=== PATIENT | female | born 1950 | race Caucasian/White ===

== ENCOUNTER 2017-05-11 06:59 | Emergency (ER) | payer OTHER ==
[2017-05-11] MEDS ORDERED: NORCO 7.5/325 MG TAB PO ONE (07:12)
[2017-05-11 07:14] VITALS: BP 126/70; BMI 52.1
[2017-05-11] MEDS ORDERED: NORCO 7.5/325 MG TAB ONE (07:14)
[2017-05-11] MEDS ORDERED: TORADOL 60 MG VIAL IM ONE (07:22)
[2017-05-11] MEDS ORDERED: TORADOL 60 MG VIAL ONE (07:27)
--- NOTE | 2017-05-11 07:30 | DR.GENAD ---
HPI - PCP Primary Care Physician: KAREN LAROSE - Complaint/Symptoms Chief Complaint:: FALL AT APPROX 530AM. C/O SEVERE PAIN TO RIGHT SHOULDER AND RIGHT KNEE IS SWELLING - Nurses notes reviewed Nurses Notes Review: Yes - Source History Provided: Patient - Mode of Arrival Mode of Arrival: Wheelchair - Timing Onset of Chief Complaint: 05/11/17 <BUDDY GRIGSBY - Last Filed: 05/11/17 07:12> PMH - PMH Past Medical History: Yes Past Medical History: Arthritis, Hypertension, Ventricular Tachycardia Past Surgical History: Yes Surgical History: Hysterectomy, Ortho Surgery, Tonsillectomy - Family History History of Family Medical Conditions: Yes Family Medical History: Diabetes Mellitus, Cancer, Hypertension - Social History Does patient currently use any type of tobacco product: No Have you used tobacco products in the last 12 months: No Type of Tobacco Use: None Does any household member use tobacco: No Alcohol Use: None Do you use any recreational Drugs:: No Lives With: Alone Lives Where: Home - infectious screening In the last 2 months have you had wt loss of >10#?: NO Have you had fever, night sweats or hemotysis?: No Have you traveled outside the country in the last 6 months?: No Isolation: Standard <BUDDY GRIGSBY - Last Filed: 05/11/17 07:12> - Vital Signs Vitals: Pulse Rate 87 Respiratory Rate 22 Blood Pressure [Right Arm] 106/55 Blood Pressure 126/70 O2 Sat by Pulse Oximetry 95 ROR - XRAY XRAY Interpreted by: Radiologist (Successful shoulder reduction. Severe acromial humeral joint space loss consistent with chronic rotator cuff injury. Severe acromial clavicular joint arthritis.) <CARLOS SNOW - Last Filed: 05/11/17 10:43> <BUDDY GRIGSBY - Last Filed: 05/11/17 07:12> <CARLOS SNOW - Last Filed: 05/11/17 10:43> - Diagnosis Discharge Problem: Dislocation of right shoulder joint Qualifiers: Encounter type: initial encounter Qualified Code(s): S43.004A - Unspecified dislocation of right shoulder joint, initial encounter - Discharge Plan Condition: Stable - Follow ups/Referrals Follow ups/Referrals: SUSI LAROSE [Primary Care Provider] - 3 days - Instructions
[2017-05-11] MEDS ORDERED: ZOFRAN INJ 4 MG VIAL IM ONE (08:14)
[2017-05-11] MEDS ORDERED: DEMEROL INJ IM ONE (08:14)
--- NOTE | 2017-05-11 08:15 | RAD ---
HISTORY: Injury, fall, right shoulder pain Study: Right shoulder AP, lateral Comparison: None Findings: There is complete anterior glenohumeral dislocation present. The clavicle, AC joint, scapula, and rig ht upper ribs are intact. IMPRESSION: Anterior glenohumeral dislocation Reported By:
--- NOTE | 2017-05-11 08:18 | RAD ---
HISTORY: Injury, fall, right knee swelling Study: Right knee AP and lateral Comparison: February 01, 2016 Findings: The patient is status post total knee arthroplasty. Position and alignment is anatomic. There is a fr agment of bone visualized adjacent to the tibial prosthesis lateral side likely representing a fractu re. There is no evidence for loosening. No joint effusion is present. IMPRESSION: Status post TKA in good position. Fragment of bone adjacent to the lateral aspect of the tibial prosthesis on the tibial plateau likel y a periprosthetic fracture. Reported By:
[2017-05-11] MEDS ORDERED: ZOFRAN INJ 4 MG VIAL ONE (08:21)
[2017-05-11] MEDS ORDERED: DEMEROL INJ ONE (08:21)
[2017-05-11] MEDS ORDERED: DIPRIVAN VIAL 20 ML ONE (08:29)
[2017-05-11] MEDS ORDERED: PROTONIX INJ 40 MG VIAL ONE (08:29)
[2017-05-11] MEDS ORDERED: NS 250 ML IV 250 ML IV ONE (10:05)
--- NOTE | 2017-05-11 10:35 | RAD ---
HISTORY: Post reduction Study: 1 views of the right shoulder. Comparison: 05/11/2017 Findings: No acute fractures or dislocations. The glenohumeral articulation is normal in its appearance. No gr oss soft tissue abnormalities. IMPRESSION: 1. Successful shoulder reduction. Severe acromial humeral joint space loss consistent with chronic r otator cuff injury. Severe acromial clavicular joint arthritis. Reported By:
== END 2017-05-11 12:39 | disposition home or self-care (01) ==
LOC: ER 06:59
PROC: 0RSJXZZ Reposition Right Shoulder Joint, External Approach (ICD-10-PCS; principal; 2017-05-11)
DX: S43.004A Unspecified dislocation of right shoulder joint, initial encounter (principal); Y33.XXXA Other specified events, undetermined intent, initial encounter; Y92.9 Unspecified place or not applicable
CPT/HCPCS: 23650; 73030; 73560; 96365; 96372; 96374; 99283; 99284; A4222; C9113; J1885; J2175; J2405; J3490

== ENCOUNTER → 2017-07-17 | Outpatient (CLI) | payer OTHER ==
--- NOTE | 2017-07-17 14:46 | MRI ---
HISTORY: Shoulder pain. Noncontrast MRI exam of the right shoulder. Technique: Multiplanar and multisequence MR examination of the shoulder is performed at 1.5 Dorys wit hout the use of IV contrast. Findings: Rotator cuff: There is an extensive, full-thickness, tear of the rotator cuff which extends from th e subscapularis of the rotator cuff to the superior aspect of the teres minor. There is marked media l translocation of the biceps tendon observed. Diffuse and marked rotator cuff atrophy is also observ ed. There is diffuse fluid seen in the subacromial and subdeltoid bursa. A moderate shoulder joint ef fusion is seen. Intra-articular biceps: No visible biceps tendon, compatible with a high-grade tear. Glenoid labrum: Diffuse fraying and degenerative maceration of the entire glenoid labrum on a degen erative basis without acute injury seen. Acromioclavicular joint: Severe AC joint osteoarthritis without AC joint injury, separation, or acu te fracture seen. Moderate acromial flattening is also seen. Glenohumeral joint: No loose bodies seen. Moderate sized shoulder joint effusion. No focal synovial erosive process is seen. However, there is severe osteoarthritis of the shoulder joint with remodeli ng of the humeral head and marginal osteophytes seen. Advanced shoulder joint chondromalacia is seen. Bone marrow: No altered T2 bone marrow signal changes are seen to suggest an acute fracture, bony c ontusion, or aggressive bone marrow lesion. No Hill Sachs deformity or bony [place] lesion is observe d, otherwise. Other: No concerning or infiltrative soft tissue mass lesion seen. IMPRESSION: 1. Full-thickness (massive and chronic appearing) rotator cuff tear, extending from the subscapularis to the teres minor with diffuse and severe rotator cuff atrophy observed. 2. High-grade tear of the intra-articular biceps tendon seen. 3. Diffuse maceration and fraying of the entire glenoid labrum; degenerative in nature. Severe AC and shoulder joint osteoarthritis with remodeling of the humeral head. Advanced shoulder joint chondroma lacia. 4. Moderate sized joint effusion with diffuse fluid in the subacromial bursa. Reported By:
== END | disposition home or self-care (01) | DRG 563 ==
LOC: RAD 12:40
PROVIDERS: ATTEND Orthopaedic Surgery
DX: S43.084A Other dislocation of right shoulder joint, initial encounter (principal); X58.XXXA Exposure to other specified factors, initial encounter; M75.101 Unspecified rotator cuff tear or rupture of right shoulder, not specified as traumatic; S46.211A Strain of muscle, fascia and tendon of other parts of biceps, right arm, initial encounter; M19.011 Primary osteoarthritis, right shoulder; M25.411 Effusion, right shoulder
CPT/HCPCS: 73221

== ENCOUNTER → 2017-09-19 | Outpatient (CLI) | payer OTHER ==
--- NOTE | 2017-09-20 10:59 | MG ---
HISTORY: SCREENING Comparison: 08/14/2016 FINDINGS: Bilateral CC and MLO projections of the right and left breast were obtained. Predominately fatty rep laced fibroglandular tissue is seen to be present. Stable nodular densities within the lateral aspect of the right and left breast are noted likely reflecting intraparenchymal and axillary lymph nodes. Otherwise, no significant architectural distortion, mass or clustered microcalcifications can be obse rved to suggest malignancy. No skin thickening or nipple retraction is appreciated. No pathologica l lymphadenopathy can be identified. IMPRESSION: NO RADIOGRAPHIC EVIDENCE OF MALIGNANCY. ACR CATEGORY: 2 - benign findings. FOLLOW-UP EXAM 1 YEAR. Diagnostic CAD was utilized and reviewed. * 0 (ZERO) - ASSESSMENT INCOMPLETE; ADDITIONAL IMAGING IS NEEDED. * 1/1 (ONE) - NEGATIVE. * 2/II (TWO) - BENIGN FINDINGS. * 3/III (THREE) - PROBABLY BENIGN FINDING; SHORT INTERVAL FOLLOW-UP SUGGESTED. * 4/IV (FOUR) - SUSPICIOUS ABNORMALITY; BIOPSY SHOULD BE CONSIDERED. * 5/V - HIGHLY SUSPICIOUS OF MALIGNANCY; BIOPSY SHOULD BE PERFORMED. A NEGATIVE X-RAY REPORT SHOULD NOT DELAY BIOPSY IF A DOMINANT OR CLINICALLY SUSPICIOUS MASS IS PRESENT; 4 TO 8 PERCENT OF CANCERS ARE NOT IDENTIFIED BY X-RAY. A NEGA TIVE REPORT MAY REINFORCE THE CLINICAL IMPRESSION. ADENOSIS AND DENSE BREASTS MAY OBSCURE AN UNDERLY ING NEOPLASM. Reported By:
== END ==
LOC: RAD 14:22
PROVIDERS: ATTEND Nurse Practitioner Family
DX: Z12.31 Encounter for screening mammogram for malignant neoplasm of breast (principal)
CPT/HCPCS: 77067

== ENCOUNTER 2018-12-30 08:22 | Inpatient (IN) ==
[2018-12-29 14:19] LABS: HEMATOCRIT 30.2 % (36.0-47.0); HEMOGLOBIN 9.1 g/dL (12.0-16.0)
[2018-12-30] MEDS ORDERED: ANCEF 1 GRAM IV PREMIX* 1 G/50 ML BAG IV ONE (09:44)
[2018-12-30] MEDS ORDERED: LR 1000 ML IV 1,000 ML ONE (09:44)
[2018-12-30 10:47] VITALS: BMI 42.5
[2018-12-30] MEDS ORDERED: FENTANYL INJ 100 mcg ONE (11:31)
[2018-12-30] MEDS ORDERED: ZEMURON ONE ×2 (11:32→12:46)
[2018-12-30] MEDS ORDERED: DECADRON INJ ONE ×2 (11:32→12:46)
[2018-12-30] MEDS ORDERED: XYLOCAINE 2% and EPINEPHRINE 1:100,000 ONE (11:44)
[2018-12-30] MEDS ORDERED: XYLOCAINE 1 % (PLAIN) ONE (11:44)
[2018-12-30] MEDS ORDERED: NS 1000 ML 1,000 ML ONE ×2 (12:03→13:58)
[2018-12-30] MEDS ORDERED: BACITRACIN VIAL ONE (12:16)
[2018-12-30] MEDS ORDERED: FLAGYL IV PREMIX 500 MG BAG 500 MG/100 ML BAG IV ONE (12:16)
[2018-12-30] MEDS ORDERED: NEOSTIGMINE INJ ONE (12:46)
[2018-12-30] MEDS ORDERED: ULTANE GAS ONE (12:46)
[2018-12-30] MEDS ORDERED: ROBINUL ONE (12:46)
[2018-12-30] MEDS ORDERED: VERSED ONE (12:46)
[2018-12-30] MEDS ORDERED: QUELICIN (OR ANECTINE) ONE (12:46)
[2018-12-30] MEDS ORDERED: TORADOL 30 MG VIAL ONE (12:46)
[2018-12-30] MEDS ORDERED: DIPRIVAN VIAL ONE (12:46)
[2018-12-30] MEDS ORDERED: ZOFRAN INJ 4 MG VIAL ONE (12:46)
[2018-12-30] MEDS ORDERED: NS IRRIGATION 1000 ML 1,000 ML with BACITRACIN VIAL 50,000 UNIT IR ONE ×2 (13:00)
[2018-12-30 13:51] LABS: BILIRUBIN,URINE NEGATIVE (NEGATIVE); BLOOD/HEMOGLOBIN,URINE 1+ (NEGATIVE); GLUCOSE, URINE NEGATIVE (NEGATIVE); KETONES,URINE NEGATIVE (NEGATIVE); LEUKOCYTE ESTERASE ,URINE NEGATIVE (NEGATIVE); NITRITES,URINE NEGATIVE (NEGATIVE); PH,URINE 6.5 (5.0 - 8.0); PROTEIN,URINE 1+ (NEGATIVE); UROBILINOGEN,URINE NORMAL (NORMAL)
[2018-12-30 13:55] LABS: AMORPHOUS SEDIMENT,UR TRACE /HPF (NEGATIVE); APPEARANCE,URINE CLEAR (CLEAR); BACTERIA,URINE TRACE /HPF (NEGATIVE); COLOR,URINE YELLOW (YELLOW); MUCUS,URINE MANY /HPF (NEGATIVE); SQUAMOUS EPITHELIAL CELL,UR RARE /HPF (NEGATIVE)
[2018-12-30] MEDS ORDERED: PHENERGAN INJ 25 MG IM PRN (14:56)
[2018-12-30] MEDS ORDERED: REGLAN INJ 10 MG VIAL IVP PRN (14:56)
[2018-12-30] MEDS ORDERED: DILAUDID INJ IVP PRN (14:56)
[2018-12-30] MEDS ORDERED: BENADRYL INJ 50 MG VIAL IVP PRN (14:56)
[2018-12-30] MEDS ORDERED: ZOFRAN INJ 4 MG VIAL IVP PRN (14:56)
[2018-12-30 17:02] LABS: HEMATOCRIT 32.3 % (36.0-47.0); HEMOGLOBIN 9.8 g/dL (12.0-16.0)
[2018-12-30] MEDS: D5 1/2 NS 1000 ML 1,000 ML IV SCH (17:50)
[2018-12-30] MEDS: ANCEF VIAL 1 GRAM IVP SCH (21:42)
[2018-12-30] MEDS: FLAGYL IV PREMIX 500 MG BAG 500 MG/100 ML BAG IV SCH (21:42)
[2018-12-30] MEDS: DILAUDID INJ IVP PRN (21:42)
[2018-12-31] MEDS: D5 1/2 NS 1000 ML 1,000 ML IV SCH ×5 (00:42→23:47)
[2018-12-31] MEDS: FLAGYL IV PREMIX 500 MG BAG 500 MG/100 ML BAG IV SCH ×2 (03:14→08:33)
[2018-12-31] MEDS: DILAUDID INJ IVP PRN ×5 (03:15→22:32)
[2018-12-31] MEDS: ANCEF VIAL 1 GRAM IVP SCH (05:35)
[2018-12-31 06:15] LABS: BASOPHILS % (AUTO) 0.1 % (0.2-1.0); HEMATOCRIT 27.7 % (36.0-47.0); HEMOGLOBIN 8.6 g/dL (12.0-16.0); LYMPHOCYTES # (AUTO) 0.8 X10^3/uL (1.3-2.9); LYMPHOCYTES % (AUTO) 7.2 % (21.0-51.0); MEAN CORPUSCULAR HEMOGLOBIN 24.6 pg (27.0-34.0); MEAN CORPUSCULAR HGB CONC 31.3 g/dL (33.0-35.0); MEAN CORPUSCULAR VOLUME 78.7 fL (80.0-100.0); MEAN PLATELET VOLUME 7.8 fL (7.4-11.0); MONOCYTES # (AUTO) 0.9 x10^3/uL (0.3-0.8); MONOCYTES % (AUTO) 7.4 % (0.0-13.0); NEUTROPHILS % (AUTO) 85.3 % (42.0-75.0); PLATELET COUNT 334 X10^3/uL (150.0-450.0); RED BLOOD COUNT 3.52 X10^6/uL (3.5-5.4); RED CELL DISTRIBUTION WIDTH 19.3 % (11.6-16.5); WHITE BLOOD COUNT 11.7 X10^3/uL (3.6-10.0)
[2018-12-31 06:41] LABS: ALANINE AMINOTRANSFERASE 13 Units/L (12-78); ALBUMIN 1.6 g/dL (3.4-5.0); ALKALINE PHOSPHATASE 71 Units/L (46-116); ASPARTATE AMINO TRANSFERASE 16 Units/L (15-37); BLOOD UREA NITROGEN 11 mg/dL (7-18); CALCIUM 7.9 mg/dL (8.5-10.1); CARBON DIOXIDE 24.4 mmol/L (21-32); CHLORIDE 108 mmol/L (98-107); COR CA(FOR HYPOALB) 9.8 mg/dL (8.5-10.1); COR NA(FOR HYPERGLY) 143 mmol/L (136-145); CREATININE 0.69 mg/dL (0.55-1.02); SODIUM 140 mmol/L (136-145); TOTAL PROTEIN 4.1 g/dL (6.4-8.2); eGFR NON BLACK RACES > 60 (>60)
[2018-12-31 06:47] LABS: HYPOCHROMASIA SLIGHT; PLATELET MORPHOLOGY COMMENT NORMAL (NORMAL)
[2018-12-31] MEDS: LOVENOX INJ 40 MG SYR SC SCH (08:33)
[2018-12-31] MEDS: PROTONIX INJ 40 MG VIAL IVP SCH (08:33)
--- NOTE | 2018-12-31 08:47 | DR.PROGNOT ---
Hospital Progress Notes - Progress Note for Day of: Progress Note Date: 12/31/18 - Chief Complaint Chief Complaint: Posrt Op rt colectomy , repair incisional hernia day 1 .. doing fairly well , only moderate incisional pain . mild drainage in KERRY .and NGT . - Past Medical Family Social History Past Med/Fam/Surg Hx: No changes since H&P Allergies: Allergies Sulfa (Sulfonamide Antibiotics) [SULFA] Adverse Reaction (Verified 12/30/18 14:16) - Review Of Systems ROS: No change since H&P - Vital Signs Vital Signs: Temperature 97.7 F Pulse Rate 60 Respiratory Rate 12 Blood Pressure [Right Arm] 126/58 Blood Pressure 110/54 O2 Sat by Pulse Oximetry 97 - Physical Exam Oriented: Normal Eyes: Normal Respiratory: Normal GI: Tenderness: Diffuse (soft abdomen , flat with diffuse tenderness , BS hypo active .) Skin: Normal Psychiatric: Normal Mood Description: Calm Speech Pattern: Clear, Appropriate - Laboratory and Diagnostics Result Diagrams: 12/31/18 05:38 12/31/18 05:30 Labs: Laboratory WBC 11.7 X10^3/uL (3.6-10.0) H 12/31/18 05:38 RBC 3.52 X10^6/uL (3.5-5.4) 12/31/18 05:38 Hgb 8.6 g/dL (12.0-16.0) L 12/31/18 05:38 Hct 27.7 % (36.0-47.0) L 12/31/18 05:38 MCV 78.7 fL (80.0-100.0) L 12/31/18 05:38 MCH 24.6 pg (27.0-34.0) L 12/31/18 05:38 MCHC 31.3 g/dL (33.0-35.0) L 12/31/18 05:38 RDW 19.3 % (11.6-16.5) H 12/31/18 05:38 Plt Count 334 X10^3/uL (150.0-450.0) 12/31/18 05:38 Plt Count Comment Adequate (ADEQUATE) 12/31/18 05:38 MPV 7.8 fL (7.4-11.0) 12/31/18 05:38 Neut % (Auto) 85.3 % (42.0-75.0) H 12/31/18 05:38 Lymph % (Auto) 7.2 % (21.0-51.0) L 12/31/18 05:38 [place] % (Auto) 7.4 % (0.0-13.0) 12/31/18 05:38 Eos % (Auto) 0.0 % (0.9-2.9) L 12/31/18 05:38 Baso % (Auto) 0.1 % (0.2-1.0) L 12/31/18 05:38 Neut # (Auto) 10.0 x10^3/uL (2.2-4.8) H 12/31/18 05:38 Lymph # (Auto) 0.8 X10^3/uL (1.3-2.9) L 12/31/18 05:38 [place] # (Auto) 0.9 x10^3/uL (0.3-0.8) H 12/31/18 05:38 Eos # (Auto) 0.0 x10^3/uL (0.0-0.2) 12/31/18 05:38 Baso # (Auto) 0.0 X10^3/uL (0.0-0.1) 12/31/18 05:38 Absolute Nucleated RBC 0.0 /100WBC 12/31/18 05:38 Plt Morphology Comment Normal (NORMAL) 12/31/18 05:38 RBC Morphology Abnormal (NORMAL) A 12/31/18 05:38 Hypochromasia Slight A 12/31/18 05:38 Sodium 140 mmol/L (136-145) 12/31/18 05:30 Corrected Sodium 143 mmol/L (136-145) 12/31/18 05:30 Potassium 3.5 mmol/L (3.5-5.1) 12/31/18 05:30 Chloride 108 mmol/L (98-107) H 12/31/18 05:30 Carbon Dioxide 24.4 mmol/L (21-32) 12/31/18 05:30 BUN 11 mg/dL (7-18) 12/31/18 05:30 Creatinine 0.69 mg/dL (0.55-1.02) 12/31/18 05:30 Est GFR (MDRD) Af Amer > 60 (>60) 12/31/18 05:30 Est GFR (MDRD) Non-Af > 60 (>60) 12/31/18 05:30 Glucose 220 mg/dL (65-99) H 12/31/18 05:30 POC Glucose (mg/dL) 225 mg/dL (65-99) H 12/31/18 05:29 Calcium 7.9 mg/dL (8.5-10.1) L 12/31/18 05:30 Corrected Calcium 9.8 mg/dL (8.5-10.1) 12/31/18 05:30 Total Bilirubin 0.20 mg/dL (0.2-1.0) 12/31/18 05:30 AST 16 Units/L (15-37) 12/31/18 05:30 ALT 13 Units/L (12-78) 12/31/18 05:30 Alkaline Phosphatase 71 Units/L (46-116) 12/31/18 05:30 Total Protein 4.1 g/dL (6.4-8.2) L 12/31/18 05:30 Albumin 1.6 g/dL (3.4-5.0) L 12/31/18 05:30 Globulin 2.5 g/dL (2.5-4.5) 12/31/18 05:30 Albumin/Globulin Ratio 0.6 Ratio (1.1-2.1) L 12/31/18 05:30 Specimen Type Catherized urine 12/30/18 12:15 Urine Color Yellow (YELLOW) 12/30/18 12:15 Urine Appearance Clear (CLEAR) 12/30/18 12:15 Urine pH 6.5 (5.0 - 8.0) 12/30/18 12:15 Ur Specific [place] 1.015 (1.000-1.030) 12/30/18 12:15 Urine Protein 1+ (NEGATIVE) 12/30/18 12:15 Urine Glucose (UA) Negative (NEGATIVE) 12/30/18 12:15 Urine Ketones Negative (NEGATIVE) 12/30/18 12:15 Urine Occult Blood 1+ (NEGATIVE) 12/30/18 12:15 Urine Nitrite Negative (NEGATIVE) 12/30/18 12:15 Urine Bilirubin Negative (NEGATIVE) 12/30/18 12:15 Urine Urobilinogen Normal (NORMAL) 12/30/18 12:15 Ur Leukocyte Esterase Negative (NEGATIVE) 12/30/18 12:15 Urine RBC 3-5 /HPF (NONE SEEN) 12/30/18 12:15 Urine WBC 3-5 /HPF (NONE SEEN) 12/30/18 12:15 Ur Squamous Epith Cells Rare /HPF (NEGATIVE) 12/30/18 12:15 Amorphous Sediment Trace /HPF (NEGATIVE) 12/30/18 12:15 Urine Bacteria Trace /HPF (NEGATIVE) 12/30/18 12:15 Urine Mucus Many /HPF (NEGATIVE) 12/30/18 12:15 Ur Culture Indicated? No/not indicated 12/30/18 12:15 Tissue Pathology To follow 12/30/18 14:00 Blood Type A POSITIVE 12/29/18 14:05 Antibody Screen Negative 12/29/18 14:05 Crossmatch See Detail 12/29/18 14:05 - Assessment and Plan 1: Rt colon ca s/p resection . same PO care , OOB , DVT prophylaxis . Diabetic control . will D/C NGT , keep NPO for now. medical cosult .
--- NOTE | 2018-12-31 17:06 | DR.H&P ---
H&P - History & Physical for Day of: H&P Date: 12/30/18 - Chief Complaint Chief Complaint: 68 WF ADMITTED FOR Exploratory laparotomy FOR EVALUATION OF KNOWN COLON CANCER. - History of Present Illness History of Present Illness: 68 WF ADMITTED FROM OR PER DR PICKETT FOR EXP LAP DUE TO Documented cancer of the ascending colon with chronic anemia. COLONOSCOPY ON 11/[address] PICKETT. PT HAS PMH OF DM, AFIB, ON XARELTO WHICH SHE IS HOLDING DUE TO SURGERY, HTN, MO, KB, OA. PT ADMITTED TO ICU POST OPERATIVE. - Past Medical History Past Medical History: Anxiety, Arthritis, Coronary Artery Disease, Diabetes, GERD, Hypertension, Ventricular Tachycardia Additional Medical History: NOTED ON ADMISSION: PATIENT STATES SHE HAS PAST HISTORY OF ATRIAL FIBRILLATION - Past Surgical History Surgical History: Hysterectomy, Joint Replacement, Ortho Surgery, Tonsillectomy - Family History Family Medical History: Cancer, [place], Coronary Artery Disease, Hypertension - Social History Does patient currently use any type of tobacco product: No Have you used tobacco products in the last 12 months: No Type of Tobacco Use: None Alcohol Use: None Drug Use: None - Medications Home Medications: Sulfa (Sulfonamide Antibiotics) [SULFA] Adverse Reaction (Verified 12/30/18 14:16) - Review of Systems Constitutional: Weakness Eyes: No Symptoms Reported ENT: No Symptoms Reported Respiratory: No Symptoms Reported Cardiovascular: No Symptoms Reported Gastrointestinal: Abdominal Pain Genitourinary: No Symptoms Reported Musculoskeletal: Back Pain Skin: No Symptoms Reported Neurological: No Symptoms Reported - Physical Exam Vital Signs: Temperature 98.1 F Pulse Rate 56 Respiratory Rate 15 Blood Pressure [Right Arm] 126/58 Blood Pressure 114/53 O2 Sat by Pulse Oximetry 95 Oriented: Normal Eyes: Normal Ear: Normal Nose: Normal Throat: Normal Respiratory: RLL Diminished, LLL Diminished Cardiovascular: Bradycardia : Normal Auscultation: Bowel Sounds: Normal Palpation: Normal Tenderness: Diffuse Skin: Decreased Turgur Musculoskeletal: Back:Lumbar Psychiatric: Anxiety Speech Pattern: Clear, Appropriate - Assessment/Plan (1) S/P exploratory laparotomy Status: Acute Plan: ADMIT, POST OPERATIVE WOUND CARE. PAIN CONTROL, BP AND CARDIAC MONITORING. NG TUBE LIS, BS CONTROL. LOVENOX (2) Colon cancer Status: Acute (3) GERD (gastroesophageal reflux disease) Status: Chronic (4) Hypertension Status: Chronic (5) Atrial fibrillation Status: Acute - Allergies Allergies/Adverse Reactions: Allergies Allergy/AdvReac Type Severity Reaction Status Date / Time Sulfa (Sulfonamide AdvReac Verified 12/30/18 14:16 Antibiotics) [SULFA]
[2019-01-01] MEDS: D5 1/2 NS 1000 ML 1,000 ML IV SCH ×2 (06:01→17:09)
[2019-01-01 06:18] LABS: BASOPHILS % (AUTO) 0.4 % (0.2-1.0); EOSINOPHILS # (AUTO) 0.1 x10^3/uL (0.0-0.2); EOSINOPHILS % (AUTO) 1.1 % (0.9-2.9); HEMATOCRIT 28.7 % (36.0-47.0); HEMOGLOBIN 8.9 g/dL (12.0-16.0); LYMPHOCYTES # (AUTO) 1.2 X10^3/uL (1.3-2.9); LYMPHOCYTES % (AUTO) 12.2 % (21.0-51.0); MEAN CORPUSCULAR HEMOGLOBIN 24.8 pg (27.0-34.0); MEAN CORPUSCULAR VOLUME 80.1 fL (80.0-100.0); MEAN PLATELET VOLUME 7.8 fL (7.4-11.0); MONOCYTES # (AUTO) 0.8 x10^3/uL (0.3-0.8); MONOCYTES % (AUTO) 8.4 % (0.0-13.0); NEUTROPHILS # (AUTO) 7.7 x10^3/uL (2.2-4.8); NEUTROPHILS % (AUTO) 77.9 % (42.0-75.0); PLATELET COUNT 303 X10^3/uL (150.0-450.0); RED BLOOD COUNT 3.59 X10^6/uL (3.5-5.4); RED CELL DISTRIBUTION WIDTH 19.9 % (11.6-16.5); WHITE BLOOD COUNT 9.9 X10^3/uL (3.6-10.0)
[2019-01-01 06:35] LABS: ALANINE AMINOTRANSFERASE 14 Units/L (12-78); ALBUMIN 1.5 g/dL (3.4-5.0); ALKALINE PHOSPHATASE 78 Units/L (46-116); ASPARTATE AMINO TRANSFERASE 14 Units/L (15-37); BLOOD UREA NITROGEN 9 mg/dL (7-18); CALCIUM 7.7 mg/dL (8.5-10.1); CARBON DIOXIDE 24.9 mmol/L (21-32); CHLORIDE 104 mmol/L (98-107); COR CA(FOR HYPOALB) 9.7 mg/dL (8.5-10.1); SODIUM 136 mmol/L (136-145); eGFR NON BLACK RACES > 60 (>60)
[2019-01-01 06:51] LABS: HYPOCHROMASIA 1+; PLATELET MORPHOLOGY COMMENT NORMAL (NORMAL)
[2019-01-01] MEDS ORDERED: POTASSIUM CHL 60 MEQ/NS 0.45% 500 ML IV PRN (07:03)
[2019-01-01] MEDS ORDERED: KLOR-CON PO PRN (07:03)
[2019-01-01] MEDS ORDERED: MICRO K EXTEN CAP 10 MEQ PO PRN (07:03)
[2019-01-01] MEDS ORDERED: POTASSIUM CHLORIDE LIQ 20 MEQ UDC PO PRN (07:03)
[2019-01-01] MEDS ORDERED: POTASSIUM CHL 40 MEQ/NS 0.45% 500 ML IV PRN (07:03)
[2019-01-01] MEDS: PROTONIX INJ 40 MG VIAL IVP SCH (08:36)
[2019-01-01] MEDS: LOVENOX INJ 40 MG SYR SC SCH (08:36)
[2019-01-01] MEDS: K-RIDER 10 MEQ/NS 100 ML 10 MEQ/100 ML BAG IV PRN ×4 (08:36→14:10)
[2019-01-01] MEDS: DILAUDID INJ IVP PRN ×3 (08:46→20:01)
--- NOTE | 2019-01-01 09:34 | DR.PROGNOT ---
Hospital Progress Notes - Progress Note for Day of: Progress Note Date: 01/01/19 - Chief Complaint Chief Complaint: Posrt Op rt colectomy , repair incisional hernia day 2 .. doing fairly well , only moderate incisional pain . no SOB, no CP .. was OOB in a chair . mild drainage in KERRY . K low 3.2 - Past Medical Family Social History Past Med/Fam/Surg Hx: No changes since H&P Allergies: Allergies Sulfa (Sulfonamide Antibiotics) [SULFA] Adverse Reaction (Verified 12/30/18 14:16) - Review Of Systems ROS: No change since H&P - Vital Signs Vital Signs: Temperature 98.6 F Pulse Rate 85 Respiratory Rate 14 Blood Pressure [Right Arm] 126/58 Blood Pressure 137/60 O2 Sat by Pulse Oximetry 92 - Physical Exam Oriented: Normal Eyes: Normal Ear: Normal Nose: Normal Throat: Normal Respiratory: Normal Cardiovascular: Bradycardia : Normal GI:Auscultation: Normal GI:Palpation: Normal GI: Tenderness: Diffuse Skin: Decreased Turgur Musculoskeletal: Back:Lumbar Psychiatric: Anxiety Mood Description: Calm Speech Pattern: Clear, Appropriate - Laboratory and Diagnostics Result Diagrams: 01/01/19 05:51 01/01/19 05:51 Labs: Laboratory WBC 9.9 X10^3/uL (3.6-10.0) 01/01/19 05:51 RBC 3.59 X10^6/uL (3.5-5.4) 01/01/19 05:51 Hgb 8.9 g/dL (12.0-16.0) L 01/01/19 05:51 Hct 28.7 % (36.0-47.0) L 01/01/19 05:51 MCV 80.1 fL (80.0-100.0) 01/01/19 05:51 MCH 24.8 pg (27.0-34.0) L 01/01/19 05:51 MCHC 31.0 g/dL (33.0-35.0) L 01/01/19 05:51 RDW 19.9 % (11.6-16.5) H 01/01/19 05:51 Plt Count 303 X10^3/uL (150.0-450.0) 01/01/19 05:51 Plt Count Comment Adequate (ADEQUATE) 01/01/19 05:51 MPV 7.8 fL (7.4-11.0) 01/01/19 05:51 Neut % (Auto) 77.9 % (42.0-75.0) H 01/01/19 05:51 Lymph % (Auto) 12.2 % (21.0-51.0) L 01/01/19 05:51 [place] % (Auto) 8.4 % (0.0-13.0) 01/01/19 05:51 Eos % (Auto) 1.1 % (0.9-2.9) 01/01/19 05:51 Baso % (Auto) 0.4 % (0.2-1.0) 01/01/19 05:51 Neut # (Auto) 7.7 x10^3/uL (2.2-4.8) H 01/01/19 05:51 Lymph # (Auto) 1.2 X10^3/uL (1.3-2.9) L 01/01/19 05:51 [place] # (Auto) 0.8 x10^3/uL (0.3-0.8) 01/01/19 05:51 Eos # (Auto) 0.1 x10^3/uL (0.0-0.2) 01/01/19 05:51 Baso # (Auto) 0.0 X10^3/uL (0.0-0.1) 01/01/19 05:51 Absolute Nucleated RBC 0.1 /100WBC 01/01/19 05:51 Plt Morphology Comment Normal (NORMAL) 01/01/19 05:51 RBC Morphology Abnormal (NORMAL) A 01/01/19 05:51 Hypochromasia 1+ A 01/01/19 05:51 Sodium 136 mmol/L (136-145) 01/01/19 05:51 Corrected Sodium TNP 01/01/19 05:51 Potassium 3.2 mmol/L (3.5-5.1) L 01/01/19 05:51 Chloride 104 mmol/L (98-107) 01/01/19 05:51 Carbon Dioxide 24.9 mmol/L (21-32) 01/01/19 05:51 BUN 9 mg/dL (7-18) 01/01/19 05:51 Creatinine 0.70 mg/dL (0.55-1.02) 01/01/19 05:51 Est GFR (MDRD) Af Amer > 60 (>60) 01/01/19 05:51 Est GFR (MDRD) Non-Af > 60 (>60) 01/01/19 05:51 Glucose 104 mg/dL (65-99) H 01/01/19 05:51 POC Glucose (mg/dL) 104 mg/dL (65-99) H 01/01/19 05:34 Calcium 7.7 mg/dL (8.5-10.1) L 01/01/19 05:51 Corrected Calcium 9.7 mg/dL (8.5-10.1) 01/01/19 05:51 Magnesium 1.8 mg/dL (1.7-2.9) 01/01/19 05:51 Total Bilirubin 0.20 mg/dL (0.2-1.0) 01/01/19 05:51 AST 14 Units/L (15-37) L 01/01/19 05:51 ALT 14 Units/L (12-78) 01/01/19 05:51 Alkaline Phosphatase 78 Units/L (46-116) 01/01/19 05:51 Total Protein 4.0 g/dL (6.4-8.2) L 01/01/19 05:51 Albumin 1.5 g/dL (3.4-5.0) L 01/01/19 05:51 Globulin 2.5 g/dL (2.5-4.5) 01/01/19 05:51 Albumin/Globulin Ratio 0.6 Ratio (1.1-2.1) L 01/01/19 05:51 Specimen Type Catherized urine 12/30/18 12:15 Urine Color Yellow (YELLOW) 12/30/18 12:15 Urine Appearance Clear (CLEAR) 12/30/18 12:15 Urine pH 6.5 (5.0 - 8.0) 12/30/18 12:15 Ur Specific [place] 1.015 (1.000-1.030) 12/30/18 12:15 Urine Protein 1+ (NEGATIVE) 12/30/18 12:15 Urine Glucose (UA) Negative (NEGATIVE) 12/30/18 12:15 Urine Ketones Negative (NEGATIVE) 12/30/18 12:15 Urine Occult Blood 1+ (NEGATIVE) 12/30/18 12:15 Urine Nitrite Negative (NEGATIVE) 12/30/18 12:15 Urine Bilirubin Negative (NEGATIVE) 12/30/18 12:15 Urine Urobilinogen Normal (NORMAL) 12/30/18 12:15 Ur Leukocyte Esterase Negative (NEGATIVE) 12/30/18 12:15 Urine RBC 3-5 /HPF (NONE SEEN) 12/30/18 12:15 Urine WBC 3-5 /HPF (NONE SEEN) 12/30/18 12:15 Ur Squamous Epith Cells Rare /HPF (NEGATIVE) 12/30/18 12:15 Amorphous Sediment Trace /HPF (NEGATIVE) 12/30/18 12:15 Urine Bacteria Trace /HPF (NEGATIVE) 12/30/18 12:15 Urine Mucus Many /HPF (NEGATIVE) 12/30/18 12:15 Ur Culture Indicated? No/not indicated 12/30/18 12:15 Tissue Pathology To follow 12/30/18 14:00 Blood Type A POSITIVE 12/29/18 14:05 Antibody Screen Negative 12/29/18 14:05 Crossmatch See Detail 12/29/18 14:05 - Assessment and Plan 1: Rt colon ca s/p resection . same PO care , OOB , DVT prophylaxis . Diabetic control . start clear liquid . d/c [place] cath. - Problem Patient Problems: Patient Problems Colon cancer (Acute) C18.9 S/P exploratory laparotomy (Acute) Z98.890 Atrial fibrillation (Acute) I48.91
[2019-01-01] MEDS: BENADRYL INJ 50 MG VIAL IVP PRN (15:13)
--- NOTE | 2019-01-01 17:46 | PCM.PROG ---
Progress Note - Progress Note for Day of Date of Exam: 01/01/19 - Subjective Subjective: 68WF ADMITTED ON 12/29, Post Op rt colectomy , repair incisional hernia day 2 co moderate incisional pain, mild drainage in ESTHER. Pt was up in chair most of the night last night, tolerated well. NG tube removed, pt eating ice chips. Discussed pt's bradycardia, stable rate in 70s this am. Pt states she had been under the care of Dr. Lees at [facility]. pt Potassium 3.2 this am, currently receiving K replacement. will continue to follow post operative instructions, plan of care. - Past Medical Family Social History Past Med/Fam/Surg Hx: No changes since H&P Allergies: Allergies Sulfa (Sulfonamide Antibiotics) [SULFA] Adverse Reaction (Verified 12/30/18 14:16) - Review of Systems ROS: No change since H&P - Vital Signs and I&O's Vital Signs: Temperature 98.1 F Pulse Rate 61 Respiratory Rate 20 Blood Pressure [Right Arm] 126/58 Blood Pressure 94/52 O2 Sat by Pulse Oximetry 97 Intake and Output: Intake & Output 12/30/18 12/31/18 01/01/19 01/02/19 11:59 11:59 11:59 11:59 Intake Total 5180 / 5180 3566 / 3566 1000 / 1000 Output Total 1914 / 1914 1480 / 1480 70 / 70 Balance 3265 / 3265 2086 / 2086 930 / 930 - Physical Exam Oriented: Normal Eyes: Normal Ear: Normal Nose: Normal Throat: Normal Respiratory: Diminished Cardiovascular: Irregular (regularly), Murmur : Normal Auscultation: Bowel Sounds: Normal Tenderness: Diffuse Skin: Decreased Turgur, Wound (right side post operative wound with dressing intact, esther drain) Musculoskeletal: Back:Lumbar Psychiatric: Anxiety Mood Description: Calm Speech Pattern: Clear, Appropriate - Laboratory and Diagnostics Result Diagrams: 01/01/19 05:51 01/01/19 05:51 Labs: Laboratory WBC 9.9 X10^3/uL (3.6-10.0) 01/01/19 05:51 RBC 3.59 X10^6/uL (3.5-5.4) 01/01/19 05:51 Hgb 8.9 g/dL (12.0-16.0) L 01/01/19 05:51 Hct 28.7 % (36.0-47.0) L 01/01/19 05:51 MCV 80.1 fL (80.0-100.0) 01/01/19 05:51 MCH 24.8 pg (27.0-34.0) L 01/01/19 05:51 MCHC 31.0 g/dL (33.0-35.0) L 01/01/19 05:51 RDW 19.9 % (11.6-16.5) H 01/01/19 05:51 Plt Count 303 X10^3/uL (150.0-450.0) 01/01/19 05:51 Plt Count Comment Adequate (ADEQUATE) 01/01/19 05:51 MPV 7.8 fL (7.4-11.0) 01/01/19 05:51 Neut % (Auto) 77.9 % (42.0-75.0) H 01/01/19 05:51 Lymph % (Auto) 12.2 % (21.0-51.0) L 01/01/19 05:51 [place] % (Auto) 8.4 % (0.0-13.0) 01/01/19 05:51 Eos % (Auto) 1.1 % (0.9-2.9) 01/01/19 05:51 Baso % (Auto) 0.4 % (0.2-1.0) 01/01/19 05:51 Neut # (Auto) 7.7 x10^3/uL (2.2-4.8) H 01/01/19 05:51 Lymph # (Auto) 1.2 X10^3/uL (1.3-2.9) L 01/01/19 05:51 [place] # (Auto) 0.8 x10^3/uL (0.3-0.8) 01/01/19 05:51 Eos # (Auto) 0.1 x10^3/uL (0.0-0.2) 01/01/19 05:51 Baso # (Auto) 0.0 X10^3/uL (0.0-0.1) 01/01/19 05:51 Absolute Nucleated RBC 0.1 /100WBC 01/01/19 05:51 Plt Morphology Comment Normal (NORMAL) 01/01/19 05:51 RBC Morphology Abnormal (NORMAL) A 01/01/19 05:51 Hypochromasia 1+ A 01/01/19 05:51 Sodium 136 mmol/L (136-145) 01/01/19 05:51 Corrected Sodium TNP 01/01/19 05:51 Potassium 3.2 mmol/L (3.5-5.1) L 01/01/19 05:51 Chloride 104 mmol/L (98-107) 01/01/19 05:51 Carbon Dioxide 24.9 mmol/L (21-32) 01/01/19 05:51 BUN 9 mg/dL (7-18) 01/01/19 05:51 Creatinine 0.70 mg/dL (0.55-1.02) 01/01/19 05:51 Est GFR (MDRD) Af Amer > 60 (>60) 01/01/19 05:51 Est GFR (MDRD) Non-Af > 60 (>60) 01/01/19 05:51 Glucose 104 mg/dL (65-99) H 01/01/19 05:51 POC Glucose (mg/dL) 106 mg/dL (65-99) H 01/01/19 16:57 Calcium 7.7 mg/dL (8.5-10.1) L 01/01/19 05:51 Corrected Calcium 9.7 mg/dL (8.5-10.1) 01/01/19 05:51 Magnesium 1.8 mg/dL (1.7-2.9) 01/01/19 05:51 Total Bilirubin 0.20 mg/dL (0.2-1.0) 01/01/19 05:51 AST 14 Units/L (15-37) L 01/01/19 05:51 ALT 14 Units/L (12-78) 01/01/19 05:51 Alkaline Phosphatase 78 Units/L (46-116) 01/01/19 05:51 Total Protein 4.0 g/dL (6.4-8.2) L 01/01/19 05:51 Albumin 1.5 g/dL (3.4-5.0) L 01/01/19 05:51 Globulin 2.5 g/dL (2.5-4.5) 01/01/19 05:51 Albumin/Globulin Ratio 0.6 Ratio (1.1-2.1) L 01/01/19 05:51 Specimen Type Catherized urine 12/30/18 12:15 Urine Color Yellow (YELLOW) 12/30/18 12:15 Urine Appearance Clear (CLEAR) 12/30/18 12:15 Urine pH 6.5 (5.0 - 8.0) 12/30/18 12:15 Ur Specific [place] 1.015 (1.000-1.030) 12/30/18 12:15 Urine Protein 1+ (NEGATIVE) 12/30/18 12:15 Urine Glucose (UA) Negative (NEGATIVE) 12/30/18 12:15 Urine Ketones Negative (NEGATIVE) 12/30/18 12:15 Urine Occult Blood 1+ (NEGATIVE) 12/30/18 12:15 Urine Nitrite Negative (NEGATIVE) 12/30/18 12:15 Urine Bilirubin Negative (NEGATIVE) 12/30/18 12:15 Urine Urobilinogen Normal (NORMAL) 12/30/18 12:15 Ur Leukocyte Esterase Negative (NEGATIVE) 12/30/18 12:15 Urine RBC 3-5 /HPF (NONE SEEN) 12/30/18 12:15 Urine WBC 3-5 /HPF (NONE SEEN) 12/30/18 12:15 Ur Squamous Epith Cells Rare /HPF (NEGATIVE) 12/30/18 12:15 Amorphous Sediment Trace /HPF (NEGATIVE) 12/30/18 12:15 Urine Bacteria Trace /HPF (NEGATIVE) 12/30/18 12:15 Urine Mucus Many /HPF (NEGATIVE) 12/30/18 12:15 Ur Culture Indicated? No/not indicated 12/30/18 12:15 Tissue Pathology To follow 12/30/18 14:00 Blood Type A POSITIVE 12/29/18 14:05 Antibody Screen Negative 12/29/18 14:05 Crossmatch See Detail 12/29/18 14:05 - Plan (1) S/P exploratory laparotomy Status: Acute Plan: POST OPERATIVE WOUND CARE. PAIN CONTROL, BP AND CARDIAC MONITORING. DIET PER DR PICKETT. BS CONTROL. LOVENOX (2) Colon cancer Status: Acute (3) GERD (gastroesophageal reflux disease) Status: Chronic (4) Hypertension Status: Chronic (5) Atrial fibrillation Status: Acute
[2019-01-02] MEDS: D5 1/2 NS 1000 ML 1,000 ML IV SCH ×2 (04:25→10:27)
[2019-01-02 05:25] LABS: BASOPHILS # (AUTO) 0.1 X10^3/uL (0.0-0.1); BASOPHILS % (AUTO) 0.6 % (0.2-1.0); EOSINOPHILS # (AUTO) 0.1 x10^3/uL (0.0-0.2); EOSINOPHILS % (AUTO) 1.2 % (0.9-2.9); HEMATOCRIT 26.9 % (36.0-47.0); HEMOGLOBIN 8.4 g/dL (12.0-16.0); LYMPHOCYTES # (AUTO) 0.8 X10^3/uL (1.3-2.9); LYMPHOCYTES % (AUTO) 8.5 % (21.0-51.0); MEAN CORPUSCULAR HEMOGLOBIN 24.8 pg (27.0-34.0); MEAN CORPUSCULAR HGB CONC 31.2 g/dL (33.0-35.0); MEAN CORPUSCULAR VOLUME 79.7 fL (80.0-100.0); MEAN PLATELET VOLUME 8.4 fL (7.4-11.0); MONOCYTES # (AUTO) 0.9 x10^3/uL (0.3-0.8); NEUTROPHILS # (AUTO) 7.2 x10^3/uL (2.2-4.8); NEUTROPHILS % (AUTO) 79.7 % (42.0-75.0); PLATELET COUNT 220 X10^3/uL (150.0-450.0); RED BLOOD COUNT 3.38 X10^6/uL (3.5-5.4); RED CELL DISTRIBUTION WIDTH 19.4 % (11.6-16.5); WHITE BLOOD COUNT 9.1 X10^3/uL (3.6-10.0)
[2019-01-02 05:36] LABS: ALANINE AMINOTRANSFERASE 16 Units/L (12-78); ALBUMIN 1.3 g/dL (3.4-5.0); ALKALINE PHOSPHATASE 73 Units/L (46-116); ASPARTATE AMINO TRANSFERASE 33 Units/L (15-37); BLOOD UREA NITROGEN 7 mg/dL (7-18); CALCIUM 7.5 mg/dL (8.5-10.1); CARBON DIOXIDE 26.1 mmol/L (21-32); CHLORIDE 107 mmol/L (98-107); COR CA(FOR HYPOALB) 9.7 mg/dL (8.5-10.1); CREATININE 0.61 mg/dL (0.55-1.02); SODIUM 138 mmol/L (136-145); TOTAL PROTEIN 3.6 g/dL (6.4-8.2); eGFR NON BLACK RACES > 60 (>60)
[2019-01-02 05:59] LABS: PLATELET MORPHOLOGY COMMENT NORMAL (NORMAL)
[2019-01-02 06:00] LABS: ANISOCYTOSIS SLIGHT; HYPOCHROMASIA 1+
[2019-01-02] MEDS: DILAUDID INJ IVP PRN ×3 (07:36→22:19)
[2019-01-02] MEDS: LOVENOX INJ 40 MG SYR SC SCH (08:05)
[2019-01-02] MEDS: PROTONIX INJ 40 MG VIAL IVP SCH (08:06)
--- NOTE | 2019-01-02 09:42 | DR.PROGNOT ---
Hospital Progress Notes - Progress Note for Day of: Progress Note Date: 01/02/19 - Chief Complaint Chief Complaint: Posrt Op rt colectomy , repair incisional hernia day 3 .. doing fairly well , only moderate incisional pain . no SOB, no CP .. was OOB in a chair . mild drainage in ESTHER . tolerating liquid diet . no BM yet. ESTHER was removed. to advance diet , - Past Medical Family Social History Past Med/Fam/Surg Hx: No changes since H&P Allergies: Allergies Sulfa (Sulfonamide Antibiotics) [SULFA] Adverse Reaction (Verified 12/30/18 14:16) - Review Of Systems ROS: No change since H&P - Vital Signs Vital Signs: Temperature 99.5 F Pulse Rate 60 Respiratory Rate 12 Blood Pressure [Right Arm] 126/58 Blood Pressure 111/55 O2 Sat by Pulse Oximetry 96 - Physical Exam Oriented: Normal Eyes: Normal Ear: Normal Nose: Normal Throat: Normal Respiratory: Diminished Cardiovascular: Irregular (regularly), Murmur : Normal GI:Auscultation: Normal GI:Palpation: Normal GI: Tenderness: Diffuse Skin: Decreased Turgur, Wound (right side post operative wound with dressing intact, esther drain) Musculoskeletal: Back:Lumbar Psychiatric: Anxiety Mood Description: Calm Speech Pattern: Clear, Appropriate - Laboratory and Diagnostics Result Diagrams: 01/02/19 04:46 01/02/19 04:46 Labs: Laboratory WBC 9.1 X10^3/uL (3.6-10.0) 01/02/19 04:46 RBC 3.38 X10^6/uL (3.5-5.4) L 01/02/19 04:46 Hgb 8.4 g/dL (12.0-16.0) L 01/02/19 04:46 Hct 26.9 % (36.0-47.0) L 01/02/19 04:46 MCV 79.7 fL (80.0-100.0) L 01/02/19 04:46 MCH 24.8 pg (27.0-34.0) L 01/02/19 04:46 MCHC 31.2 g/dL (33.0-35.0) L 01/02/19 04:46 RDW 19.4 % (11.6-16.5) H 01/02/19 04:46 Plt Count 220 X10^3/uL (150.0-450.0) 01/02/19 04:46 Plt Count Comment Adequate (ADEQUATE) 01/02/19 04:46 MPV 8.4 fL (7.4-11.0) 01/02/19 04:46 Neut % (Auto) 79.7 % (42.0-75.0) H 01/02/19 04:46 Lymph % (Auto) 8.5 % (21.0-51.0) L 01/02/19 04:46 [place] % (Auto) 10.0 % (0.0-13.0) 01/02/19 04:46 Eos % (Auto) 1.2 % (0.9-2.9) 01/02/19 04:46 Baso % (Auto) 0.6 % (0.2-1.0) 01/02/19 04:46 Neut # (Auto) 7.2 x10^3/uL (2.2-4.8) H 01/02/19 04:46 Lymph # (Auto) 0.8 X10^3/uL (1.3-2.9) L 01/02/19 04:46 [place] # (Auto) 0.9 x10^3/uL (0.3-0.8) H 01/02/19 04:46 Eos # (Auto) 0.1 x10^3/uL (0.0-0.2) 01/02/19 04:46 Baso # (Auto) 0.1 X10^3/uL (0.0-0.1) 01/02/19 04:46 Absolute Nucleated RBC 0.1 /100WBC 01/02/19 04:46 Plt Morphology Comment Normal (NORMAL) 01/02/19 04:46 RBC Morphology Abnormal (NORMAL) A 01/02/19 04:46 Hypochromasia 1+ A 01/02/19 04:46 Anisocytosis Slight A 01/02/19 04:46 Sodium 138 mmol/L (136-145) 01/02/19 04:46 Corrected Sodium TNP 01/02/19 04:46 Potassium 4.4 mmol/L (3.5-5.1) 01/02/19 04:46 Chloride 107 mmol/L (98-107) 01/02/19 04:46 Carbon Dioxide 26.1 mmol/L (21-32) 01/02/19 04:46 BUN 7 mg/dL (7-18) 01/02/19 04:46 Creatinine 0.61 mg/dL (0.55-1.02) 01/02/19 04:46 Est GFR (MDRD) Af Amer > 60 (>60) 01/02/19 04:46 Est GFR (MDRD) Non-Af > 60 (>60) 01/02/19 04:46 Glucose 91 mg/dL (65-99) 01/02/19 04:46 POC Glucose (mg/dL) 88 mg/dL (65-99) 01/02/19 04:46 Calcium 7.5 mg/dL (8.5-10.1) L 01/02/19 04:46 Corrected Calcium 9.7 mg/dL (8.5-10.1) 01/02/19 04:46 Magnesium 1.8 mg/dL (1.7-2.9) 01/01/19 05:51 Total Bilirubin 0.40 mg/dL (0.2-1.0) 01/02/19 04:46 AST 33 Units/L (15-37) 01/02/19 04:46 ALT 16 Units/L (12-78) 01/02/19 04:46 Alkaline Phosphatase 73 Units/L (46-116) 01/02/19 04:46 Total Protein 3.6 g/dL (6.4-8.2) L 01/02/19 04:46 Albumin 1.3 g/dL (3.4-5.0) L 01/02/19 04:46 Globulin 2.3 g/dL (2.5-4.5) L 01/02/19 04:46 Albumin/Globulin Ratio 0.6 Ratio (1.1-2.1) L 01/02/19 04:46 Specimen Type Catherized urine 12/30/18 12:15 Urine Color Yellow (YELLOW) 12/30/18 12:15 Urine Appearance Clear (CLEAR) 12/30/18 12:15 Urine pH 6.5 (5.0 - 8.0) 12/30/18 12:15 Ur Specific [place] 1.015 (1.000-1.030) 12/30/18 12:15 Urine Protein 1+ (NEGATIVE) 12/30/18 12:15 Urine Glucose (UA) Negative (NEGATIVE) 12/30/18 12:15 Urine Ketones Negative (NEGATIVE) 12/30/18 12:15 Urine Occult Blood 1+ (NEGATIVE) 12/30/18 12:15 Urine Nitrite Negative (NEGATIVE) 12/30/18 12:15 Urine Bilirubin Negative (NEGATIVE) 12/30/18 12:15 Urine Urobilinogen Normal (NORMAL) 12/30/18 12:15 Ur Leukocyte Esterase Negative (NEGATIVE) 12/30/18 12:15 Urine RBC 3-5 /HPF (NONE SEEN) 12/30/18 12:15 Urine WBC 3-5 /HPF (NONE SEEN) 12/30/18 12:15 Ur Squamous Epith Cells Rare /HPF (NEGATIVE) 12/30/18 12:15 Amorphous Sediment Trace /HPF (NEGATIVE) 12/30/18 12:15 Urine Bacteria Trace /HPF (NEGATIVE) 12/30/18 12:15 Urine Mucus Many /HPF (NEGATIVE) 12/30/18 12:15 Ur Culture Indicated? No/not indicated 12/30/18 12:15 Tissue Pathology To follow 12/30/18 14:00 Blood Type A POSITIVE 12/29/18 14:05 Antibody Screen Negative 12/29/18 14:05 Crossmatch See Detail 12/29/18 14:05 - Assessment and Plan 1: Rt colon ca s/p resection . same PO care , OOB , DVT prophylaxis . Diabetic control . start on full liquid . PT/OT - Problem Patient Problems: Patient Problems Colon cancer (Acute) C18.9 S/P exploratory laparotomy (Acute) Z98.890 Atrial fibrillation (Acute) I48.91
[2019-01-02] MEDS ORDERED: DUONEB 0.5 MG/3 MG NEB PRN (11:38)
--- NOTE | 2019-01-02 13:46 | PCM.PROG ---
Progress Note - Progress Note for Day of Date of Exam: 01/02/19 - Subjective Subjective: 68WF ADMITTED ON 12/29, Post Op rt colectomy , repair incisional hernia day 3 co moderate incisional pain, mild drainage in ESTHER this am, Dr. Hernandez to remove this afternoon. He discussed with pt pending pathology would determin treatment but we both recommended see Oncologist after DC. Pt was up in chair most of the night last night, tolerated well. Heart rate in 60's, pain controlled at this time. Diet advanced per surgery. Hgb 8.4, will decrease IV fluids since shes advancing her diet, monitor H&H. will continue to follow post operative instructions, plan of care. - Past Medical Family Social History Past Med/Fam/Surg Hx: No changes since H&P Allergies: Allergies Sulfa (Sulfonamide Antibiotics) [SULFA] Adverse Reaction (Verified 12/30/18 14:16) - Review of Systems ROS: No change since H&P - Vital Signs and I&O's Vital Signs: Temperature 98.2 F Pulse Rate 62 Respiratory Rate 15 Blood Pressure [Right Arm] 126/58 Blood Pressure 110/55 O2 Sat by Pulse Oximetry 96 Intake and Output: Intake & Output 12/31/18 01/01/19 01/02/19 01/03/19 11:59 11:59 11:59 11:59 Intake Total 5180 / 5180 3566 / 3566 2550 / 2550 Output Total 1914 / 1914 1480 / 1480 1040 / 1040 Balance 3265 / 3265 2086 / 2086 1510 / 1510 - Physical Exam Oriented: Normal Eyes: Normal Ear: Normal Nose: Normal Throat: Normal Respiratory: Diminished Cardiovascular: Irregular (regularly), Murmur : Normal Auscultation: Bowel Sounds: Normal Tenderness: Diffuse Skin: Decreased Turgur, Wound (right side post operative wound with dressing intact, esther drain) Musculoskeletal: Back:Lumbar Psychiatric: Anxiety Mood Description: Calm Speech Pattern: Clear, Appropriate - Laboratory and Diagnostics Result Diagrams: 01/02/19 04:46 01/02/19 04:46 Labs: Laboratory WBC 9.1 X10^3/uL (3.6-10.0) 01/02/19 04:46 RBC 3.38 X10^6/uL (3.5-5.4) L 01/02/19 04:46 Hgb 8.4 g/dL (12.0-16.0) L 01/02/19 04:46 Hct 26.9 % (36.0-47.0) L 01/02/19 04:46 MCV 79.7 fL (80.0-100.0) L 01/02/19 04:46 MCH 24.8 pg (27.0-34.0) L 01/02/19 04:46 MCHC 31.2 g/dL (33.0-35.0) L 01/02/19 04:46 RDW 19.4 % (11.6-16.5) H 01/02/19 04:46 Plt Count 220 X10^3/uL (150.0-450.0) 01/02/19 04:46 Plt Count Comment Adequate (ADEQUATE) 01/02/19 04:46 MPV 8.4 fL (7.4-11.0) 01/02/19 04:46 Neut % (Auto) 79.7 % (42.0-75.0) H 01/02/19 04:46 Lymph % (Auto) 8.5 % (21.0-51.0) L 01/02/19 04:46 [place] % (Auto) 10.0 % (0.0-13.0) 01/02/19 04:46 Eos % (Auto) 1.2 % (0.9-2.9) 01/02/19 04:46 Baso % (Auto) 0.6 % (0.2-1.0) 01/02/19 04:46 Neut # (Auto) 7.2 x10^3/uL (2.2-4.8) H 01/02/19 04:46 Lymph # (Auto) 0.8 X10^3/uL (1.3-2.9) L 01/02/19 04:46 [place] # (Auto) 0.9 x10^3/uL (0.3-0.8) H 01/02/19 04:46 Eos # (Auto) 0.1 x10^3/uL (0.0-0.2) 01/02/19 04:46 Baso # (Auto) 0.1 X10^3/uL (0.0-0.1) 01/02/19 04:46 Absolute Nucleated RBC 0.1 /100WBC 01/02/19 04:46 Plt Morphology Comment Normal (NORMAL) 01/02/19 04:46 RBC Morphology Abnormal (NORMAL) A 01/02/19 04:46 Hypochromasia 1+ A 01/02/19 04:46 Anisocytosis Slight A 01/02/19 04:46 Sodium 138 mmol/L (136-145) 01/02/19 04:46 Corrected Sodium TNP 01/02/19 04:46 Potassium 4.4 mmol/L (3.5-5.1) 01/02/19 04:46 Chloride 107 mmol/L (98-107) 01/02/19 04:46 Carbon Dioxide 26.1 mmol/L (21-32) 01/02/19 04:46 BUN 7 mg/dL (7-18) 01/02/19 04:46 Creatinine 0.61 mg/dL (0.55-1.02) 01/02/19 04:46 Est GFR (MDRD) Af Amer > 60 (>60) 01/02/19 04:46 Est GFR (MDRD) Non-Af > 60 (>60) 01/02/19 04:46 Glucose 91 mg/dL (65-99) 01/02/19 04:46 POC Glucose (mg/dL) 104 mg/dL (65-99) H 01/02/19 11:04 Calcium 7.5 mg/dL (8.5-10.1) L 01/02/19 04:46 Corrected Calcium 9.7 mg/dL (8.5-10.1) 01/02/19 04:46 Magnesium 1.8 mg/dL (1.7-2.9) 01/01/19 05:51 Total Bilirubin 0.40 mg/dL (0.2-1.0) 01/02/19 04:46 AST 33 Units/L (15-37) 01/02/19 04:46 ALT 16 Units/L (12-78) 01/02/19 04:46 Alkaline Phosphatase 73 Units/L (46-116) 01/02/19 04:46 Total Protein 3.6 g/dL (6.4-8.2) L 01/02/19 04:46 Albumin 1.3 g/dL (3.4-5.0) L 01/02/19 04:46 Globulin 2.3 g/dL (2.5-4.5) L 01/02/19 04:46 Albumin/Globulin Ratio 0.6 Ratio (1.1-2.1) L 01/02/19 04:46 Specimen Type Catherized urine 12/30/18 12:15 Urine Color Yellow (YELLOW) 12/30/18 12:15 Urine Appearance Clear (CLEAR) 12/30/18 12:15 Urine pH 6.5 (5.0 - 8.0) 12/30/18 12:15 Ur Specific [place] 1.015 (1.000-1.030) 12/30/18 12:15 Urine Protein 1+ (NEGATIVE) 12/30/18 12:15 Urine Glucose (UA) Negative (NEGATIVE) 12/30/18 12:15 Urine Ketones Negative (NEGATIVE) 12/30/18 12:15 Urine Occult Blood 1+ (NEGATIVE) 12/30/18 12:15 Urine Nitrite Negative (NEGATIVE) 12/30/18 12:15 Urine Bilirubin Negative (NEGATIVE) 12/30/18 12:15 Urine Urobilinogen Normal (NORMAL) 12/30/18 12:15 Ur Leukocyte Esterase Negative (NEGATIVE) 12/30/18 12:15 Urine RBC 3-5 /HPF (NONE SEEN) 12/30/18 12:15 Urine WBC 3-5 /HPF (NONE SEEN) 12/30/18 12:15 Ur Squamous Epith Cells Rare /HPF (NEGATIVE) 12/30/18 12:15 Amorphous Sediment Trace /HPF (NEGATIVE) 12/30/18 12:15 Urine Bacteria Trace /HPF (NEGATIVE) 12/30/18 12:15 Urine Mucus Many /HPF (NEGATIVE) 12/30/18 12:15 Ur Culture Indicated? No/not indicated 12/30/18 12:15 Tissue Pathology To follow 12/30/18 14:00 Blood Type A POSITIVE 12/29/18 14:05 Antibody Screen Negative 12/29/18 14:05 Crossmatch See Detail 12/29/18 14:05 - Plan (1) S/P exploratory laparotomy Status: Acute Plan: POST OPERATIVE WOUND CARE. PAIN CONTROL, BP AND CARDIAC MONITORING. DIET PER DR HERNANDEZ. BS CONTROL. LOVENOX (2) Colon cancer Status: Acute (3) GERD (gastroesophageal reflux disease) Status: Chronic (4) Hypertension Status: Chronic (5) Atrial fibrillation Status: Acute
--- NOTE | 2019-01-02 14:07 | RAD ---
HISTORY: Cough. Study: Portable chest. Comparison: Chest x-ray dated November 29, 2018. Findings: The trachea is midline. The cardiac silhouette is enlarged without overt signs of failure. Nonspecific eventration of the right hemidiaphragm. No obvious focal consolidation, pleural effusion, or pneumothorax. The bony thorax is unremarkable. IMPRESSION: No acute cardiopulmonary disease. Reported By:
[2019-01-03] MEDS ORDERED: NYSTATIN POWDER TOP PRN (03:07)
[2019-01-03] MEDS ORDERED: NYSTATIN POWDER ONE (03:16)
[2019-01-03] MEDS: DILAUDID INJ IVP PRN (04:05)
[2019-01-03 06:18] LABS: BASOPHILS # (AUTO) 0.1 X10^3/uL (0.0-0.1); BASOPHILS % (AUTO) 0.6 % (0.2-1.0); EOSINOPHILS # (AUTO) 0.2 x10^3/uL (0.0-0.2); EOSINOPHILS % (AUTO) 1.9 % (0.9-2.9); HEMATOCRIT 26.1 % (36.0-47.0); HEMOGLOBIN 8.1 g/dL (12.0-16.0); LYMPHOCYTES # (AUTO) 0.8 X10^3/uL (1.3-2.9); LYMPHOCYTES % (AUTO) 7.3 % (21.0-51.0); MEAN CORPUSCULAR HEMOGLOBIN 24.7 pg (27.0-34.0); MEAN CORPUSCULAR HGB CONC 31.1 g/dL (33.0-35.0); MEAN CORPUSCULAR VOLUME 79.5 fL (80.0-100.0); MEAN PLATELET VOLUME 8.2 fL (7.4-11.0); MONOCYTES # (AUTO) 0.8 x10^3/uL (0.3-0.8); MONOCYTES % (AUTO) 7.8 % (0.0-13.0); NEUTROPHILS # (AUTO) 8.8 x10^3/uL (2.2-4.8); NEUTROPHILS % (AUTO) 82.4 % (42.0-75.0); PLATELET COUNT 225 X10^3/uL (150.0-450.0); RED BLOOD COUNT 3.28 X10^6/uL (3.5-5.4); RED CELL DISTRIBUTION WIDTH 19.7 % (11.6-16.5); WHITE BLOOD COUNT 10.7 X10^3/uL (3.6-10.0)
[2019-01-03 06:30] LABS: ALANINE AMINOTRANSFERASE 12 Units/L (12-78); ALBUMIN 1.2 g/dL (3.4-5.0); ALKALINE PHOSPHATASE 76 Units/L (46-116); ASPARTATE AMINO TRANSFERASE 16 Units/L (15-37); BLOOD UREA NITROGEN 7 mg/dL (7-18); CALCIUM 7.7 mg/dL (8.5-10.1); CARBON DIOXIDE 27.7 mmol/L (21-32); CHLORIDE 108 mmol/L (98-107); COR CA(FOR HYPOALB) 9.9 mg/dL (8.5-10.1); CREATININE 0.54 mg/dL (0.55-1.02); SODIUM 140 mmol/L (136-145); TOTAL PROTEIN 3.6 g/dL (6.4-8.2); eGFR NON BLACK RACES > 60 (>60)
[2019-01-03 06:43] LABS: ANISOCYTOSIS SLIGHT; HYPOCHROMASIA SLIGHT; PLATELET MORPHOLOGY COMMENT NORMAL (NORMAL)
[2019-01-03] MEDS: D5 1/2 NS 1000 ML 1,000 ML IV SCH ×2 (08:23→17:01)
[2019-01-03] MEDS ORDERED: LASIX IVP PRN (08:30)
[2019-01-03] MEDS: LOVENOX INJ 40 MG SYR SC SCH (09:14)
[2019-01-03] MEDS: PROTONIX INJ 40 MG VIAL IVP SCH (09:14)
[2019-01-03] MEDS: BENADRYL INJ 50 MG VIAL IVP PRN (09:28)
[2019-01-03] MEDS ORDERED: NS 500 ML IV 500 ML ONE (10:45)
--- NOTE | 2019-01-03 13:41 | DR.PROGNOT ---
Hospital Progress Notes - Progress Note for Day of: Progress Note Date: 01/03/19 - Chief Complaint Chief Complaint: Posrt Op rt colectomy , repair incisional hernia day 4.. doing fairly well , only moderate incisional pain . no SOB, no CP .. . tolerating diet . no BM yet. Hgb 8.1. lytes normal - Past Medical Family Social History Past Med/Fam/Surg Hx: No changes since H&P Allergies: Allergies Sulfa (Sulfonamide Antibiotics) [SULFA] Adverse Reaction (Verified 12/30/18 14:16) - Review Of Systems ROS: No change since H&P - Vital Signs Vital Signs: Temperature 99.0 F Pulse Rate 64 Respiratory Rate 15 Blood Pressure [Right Arm] 126/58 Blood Pressure 100/53 O2 Sat by Pulse Oximetry 100 - Physical Exam Oriented: Normal Eyes: Normal Ear: Normal Nose: Normal Throat: Normal Respiratory: Diminished Cardiovascular: Irregular (regularly), Murmur : Normal GI:Auscultation: Normal GI:Palpation: Normal GI: Tenderness: Diffuse Skin: Decreased Turgur, Wound (right side post operative wound with dressing intact, esther drain) Musculoskeletal: Back:Lumbar Psychiatric: Anxiety Mood Description: Calm Speech Pattern: Clear, Appropriate - Laboratory and Diagnostics Result Diagrams: 01/03/19 05:33 01/03/19 05:33 Labs: Laboratory WBC 10.7 X10^3/uL (3.6-10.0) H 01/03/19 05:33 RBC 3.28 X10^6/uL (3.5-5.4) L 01/03/19 05:33 Hgb 8.1 g/dL (12.0-16.0) L 01/03/19 05:33 Hct 26.1 % (36.0-47.0) L 01/03/19 05:33 MCV 79.5 fL (80.0-100.0) L 01/03/19 05:33 MCH 24.7 pg (27.0-34.0) L 01/03/19 05:33 MCHC 31.1 g/dL (33.0-35.0) L 01/03/19 05:33 RDW 19.7 % (11.6-16.5) H 01/03/19 05:33 Plt Count 225 X10^3/uL (150.0-450.0) 05/03/19 05:33 Plt Count Comment Adequate (ADEQUATE) 01/03/19 05:33 MPV 8.2 fL (7.4-11.0) 01/03/19 05:33 Neut % (Auto) 82.4 % (42.0-75.0) H 01/03/19 05:33 Lymph % (Auto) 7.3 % (21.0-51.0) L 01/03/19 05:33 [place] % (Auto) 7.8 % (0.0-13.0) 01/03/19 05:33 Eos % (Auto) 1.9 % (0.9-2.9) 01/03/19 05:33 Baso % (Auto) 0.6 % (0.2-1.0) 01/03/19 05:33 Neut # (Auto) 8.8 x10^3/uL (2.2-4.8) H 01/03/19 05:33 Lymph # (Auto) 0.8 X10^3/uL (1.3-2.9) L 01/03/19 05:33 [place] # (Auto) 0.8 x10^3/uL (0.3-0.8) 01/03/19 05:33 Eos # (Auto) 0.2 x10^3/uL (0.0-0.2) 01/03/19 05:33 Baso # (Auto) 0.1 X10^3/uL (0.0-0.1) 01/03/19 05:33 Absolute Nucleated RBC 0.0 /100WBC 01/03/19 05:33 Plt Morphology Comment Normal (NORMAL) 01/03/19 05:33 RBC Morphology Abnormal (NORMAL) A 01/03/19 05:33 Hypochromasia Slight A 01/03/19 05:33 Anisocytosis Slight A 01/03/19 05:33 Sodium 140 mmol/L (136-145) 01/03/19 05:33 Corrected Sodium TNP 01/03/19 05:33 Potassium 3.8 mmol/L (3.5-5.1) 01/03/19 05:33 Chloride 108 mmol/L (98-107) H 01/03/19 05:33 Carbon Dioxide 27.7 mmol/L (21-32) 01/03/19 05:33 BUN 7 mg/dL (7-18) 01/03/19 05:33 Creatinine 0.54 mg/dL (0.55-1.02) L 01/03/19 05:33 Est GFR (MDRD) Af Amer > 60 (>60) 01/03/19 05:33 Est GFR (MDRD) Non-Af > 60 (>60) 01/03/19 05:33 Glucose 83 mg/dL (65-99) 01/03/19 05:33 POC Glucose (mg/dL) 108 mg/dL (65-99) H 01/03/19 11:22 Calcium 7.7 mg/dL (8.5-10.1) L 01/03/19 05:33 Corrected Calcium 9.9 mg/dL (8.5-10.1) 01/03/19 05:33 Magnesium 1.8 mg/dL (1.7-2.9) 01/01/19 05:51 Total Bilirubin 0.20 mg/dL (0.2-1.0) 01/03/19 05:33 AST 16 Units/L (15-37) 01/03/19 05:33 ALT 12 Units/L (12-78) 01/03/19 05:33 Alkaline Phosphatase 76 Units/L (46-116) 01/03/19 05:33 Total Protein 3.6 g/dL (6.4-8.2) L 01/03/19 05:33 Albumin 1.2 g/dL (3.4-5.0) L 01/03/19 05:33 Globulin 2.4 g/dL (2.5-4.5) L 01/03/19 05:33 Albumin/Globulin Ratio 0.5 Ratio (1.1-2.1) L 01/03/19 05:33 Specimen Type Catherized urine 12/30/18 12:15 Urine Color Yellow (YELLOW) 12/30/18 12:15 Urine Appearance Clear (CLEAR) 12/30/18 12:15 Urine pH 6.5 (5.0 - 8.0) 12/30/18 12:15 Ur Specific [place] 1.015 (1.000-1.030) 12/30/18 12:15 Urine Protein 1+ (NEGATIVE) 12/30/18 12:15 Urine Glucose (UA) Negative (NEGATIVE) 12/30/18 12:15 Urine Ketones Negative (NEGATIVE) 12/30/18 12:15 Urine Occult Blood 1+ (NEGATIVE) 12/30/18 12:15 Urine Nitrite Negative (NEGATIVE) 12/30/18 12:15 Urine Bilirubin Negative (NEGATIVE) 12/30/18 12:15 Urine Urobilinogen Normal (NORMAL) 12/30/18 12:15 Ur Leukocyte Esterase Negative (NEGATIVE) 12/30/18 12:15 Urine RBC 3-5 /HPF (NONE SEEN) 12/30/18 12:15 Urine WBC 3-5 /HPF (NONE SEEN) 12/30/18 12:15 Ur Squamous Epith Cells Rare /HPF (NEGATIVE) 12/30/18 12:15 Amorphous Sediment Trace /HPF (NEGATIVE) 12/30/18 12:15 Urine Bacteria Trace /HPF (NEGATIVE) 12/30/18 12:15 Urine Mucus Many /HPF (NEGATIVE) 12/30/18 12:15 Ur Culture Indicated? No/not indicated 12/30/18 12:15 Tissue Pathology To follow 12/30/18 14:00 Blood Type A POSITIVE 01/03/19 09:12 Antibody Screen Negative 01/03/19 09:12 Crossmatch See Detail 01/03/19 09:12 - Assessment and Plan 1: Rt colon ca s/p resection . same PO care , OOB , DVT prophylaxis . Diabetic control . start on soft diet. PT/OT. could benefit from placement in NH for a week for PT /OT and reconditioning .. - Problem Patient Problems: Patient Problems Colon cancer (Acute) C18.9 S/P exploratory laparotomy (Acute) Z98.890 Atrial fibrillation (Acute) I48.91
[2019-01-03 16:08] LABS: HEMATOCRIT 30.4 % (36.0-47.0); HEMOGLOBIN 9.5 g/dL (12.0-16.0)
[2019-01-03] MEDS: NORCO 5/325 MG TAB PO PRN (16:25)
[2019-01-04] MEDS: D5 1/2 NS 1000 ML 1,000 ML IV SCH ×2 (03:00→16:49)
[2019-01-04] MEDS: NORCO 5/325 MG TAB PO PRN ×2 (04:50→15:03)
[2019-01-04 05:28] LABS: BASOPHILS # (AUTO) 0.1 X10^3/uL (0.0-0.1); EOSINOPHILS # (AUTO) 0.3 x10^3/uL (0.0-0.2); EOSINOPHILS % (AUTO) 4.3 % (0.9-2.9); HEMOGLOBIN 9.4 g/dL (12.0-16.0); LYMPHOCYTES # (AUTO) 0.8 X10^3/uL (1.3-2.9); LYMPHOCYTES % (AUTO) 10.2 % (21.0-51.0); MEAN CORPUSCULAR HEMOGLOBIN 25.5 pg (27.0-34.0); MEAN CORPUSCULAR HGB CONC 31.4 g/dL (33.0-35.0); MEAN CORPUSCULAR VOLUME 81.3 fL (80.0-100.0); MEAN PLATELET VOLUME 8.5 fL (7.4-11.0); MONOCYTES # (AUTO) 0.8 x10^3/uL (0.3-0.8); MONOCYTES % (AUTO) 9.8 % (0.0-13.0); NEUTROPHILS % (AUTO) 74.7 % (42.0-75.0); PLATELET COUNT 282 X10^3/uL (150.0-450.0); RED BLOOD COUNT 3.69 X10^6/uL (3.5-5.4); RED CELL DISTRIBUTION WIDTH 18.9 % (11.6-16.5); WHITE BLOOD COUNT 8.1 X10^3/uL (3.6-10.0)
[2019-01-04 05:42] LABS: ALANINE AMINOTRANSFERASE 6 Units/L (12-78); ALBUMIN 1.2 g/dL (3.4-5.0); ALKALINE PHOSPHATASE 75 Units/L (46-116); ASPARTATE AMINO TRANSFERASE 11 Units/L (15-37); BLOOD UREA NITROGEN 7 mg/dL (7-18); CALCIUM 7.6 mg/dL (8.5-10.1); CARBON DIOXIDE 26.7 mmol/L (21-32); CHLORIDE 108 mmol/L (98-107); COR CA(FOR HYPOALB) 9.8 mg/dL (8.5-10.1); CREATININE 0.57 mg/dL (0.55-1.02); SODIUM 142 mmol/L (136-145); TOTAL PROTEIN 3.8 g/dL (6.4-8.2); eGFR NON BLACK RACES > 60 (>60)
[2019-01-04 06:31] LABS: HYPOCHROMASIA SLIGHT; PLATELET MORPHOLOGY COMMENT NORMAL (NORMAL)
[2019-01-04] MEDS: LOVENOX INJ 40 MG SYR SC SCH (09:15)
[2019-01-04] MEDS: PROTONIX INJ 40 MG VIAL IVP SCH (09:15)
[2019-01-04] MEDS: K-DUR TAB 20 MEQ PO PRN ×2 (09:15→15:05)
[2019-01-04] MEDS: MAGNESIUM SULFATE 1 GRAM/100 mL PREMIX 1 GM/100 ML BAG IV PRN ×2 (09:15→10:13)
--- NOTE | 2019-01-04 10:14 | DR.PROGNOT ---
Hospital Progress Notes - Progress Note for Day of: Progress Note Date: 01/04/19 - Chief Complaint Chief Complaint: Posrt Op rt colectomy , repair incisional hernia day 5.. doing fairly well , only moderate incisional pain . no SOB, no CP .. . tolerating diet . passing flatus. Hgb 9.2..K 3.1 - Past Medical Family Social History Past Med/Fam/Surg Hx: No changes since H&P Allergies: Allergies Sulfa (Sulfonamide Antibiotics) [SULFA] Adverse Reaction (Verified 12/30/18 14:16) - Review Of Systems ROS: No change since H&P - Vital Signs Vital Signs: Temperature 98.2 F Pulse Rate 66 Respiratory Rate 17 Blood Pressure [Right Arm] 126/58 Blood Pressure 124/56 O2 Sat by Pulse Oximetry 99 - Physical Exam Oriented: Normal Eyes: Normal Ear: Normal Nose: Normal Throat: Normal Respiratory: Diminished Cardiovascular: Irregular (regularly), Murmur : Normal GI:Auscultation: Normal GI:Palpation: Normal GI: Tenderness: Diffuse Skin: Decreased Turgur, Wound (right side post operative wound with dressing intact, esther drain) Musculoskeletal: Back:Lumbar Psychiatric: Anxiety Mood Description: Calm Speech Pattern: Clear, Appropriate - Laboratory and Diagnostics Result Diagrams: 01/04/19 04:04 01/04/19 04:04 Labs: Laboratory WBC 8.1 X10^3/uL (3.6-10.0) 01/04/19 04:04 RBC 3.69 X10^6/uL (3.5-5.4) 01/04/19 04:04 Hgb 9.4 g/dL (12.0-16.0) L 01/04/19 04:04 Hct 30.0 % (36.0-47.0) L 01/04/19 04:04 MCV 81.3 fL (80.0-100.0) 01/04/19 04:04 MCH 25.5 pg (27.0-34.0) L 01/04/19 04:04 MCHC 31.4 g/dL (33.0-35.0) L 01/04/19 04:04 RDW 18.9 % (11.6-16.5) H 01/04/19 04:04 Plt Count 282 X10^3/uL (150.0-450.0) 01/04/19 04:04 Plt Count Comment Adequate (ADEQUATE) 01/04/19 04:04 MPV 8.5 fL (7.4-11.0) 01/04/19 04:04 Neut % (Auto) 74.7 % (42.0-75.0) 01/04/19 04:04 Lymph % (Auto) 10.2 % (21.0-51.0) L 01/04/19 04:04 [place] % (Auto) 9.8 % (0.0-13.0) 01/04/19 04:04 Eos % (Auto) 4.3 % (0.9-2.9) H 01/04/19 04:04 Baso % (Auto) 1.0 % (0.2-1.0) 01/04/19 04:04 Neut # (Auto) 6.0 x10^3/uL (2.2-4.8) H 01/04/19 04:04 Lymph # (Auto) 0.8 X10^3/uL (1.3-2.9) L 01/04/19 04:04 [place] # (Auto) 0.8 x10^3/uL (0.3-0.8) 01/04/19 04:04 Eos # (Auto) 0.3 x10^3/uL (0.0-0.2) H 01/04/19 04:04 Baso # (Auto) 0.1 X10^3/uL (0.0-0.1) 01/04/19 04:04 Absolute Nucleated RBC 0.0 /100WBC 01/04/19 04:04 Plt Morphology Comment Normal (NORMAL) 01/04/19 04:04 RBC Morphology Abnormal (NORMAL) A 01/04/19 04:04 Hypochromasia Slight A 01/04/19 04:04 Anisocytosis Slight A 01/03/19 05:33 Sodium 142 mmol/L (136-145) 01/04/19 04:04 Corrected Sodium TNP 01/04/19 04:04 Potassium 3.1 mmol/L (3.5-5.1) L 01/04/19 04:04 Chloride 108 mmol/L (98-107) H 01/04/19 04:04 Carbon Dioxide 26.7 mmol/L (21-32) 01/04/19 04:04 BUN 7 mg/dL (7-18) 01/04/19 04:04 Creatinine 0.57 mg/dL (0.55-1.02) 01/04/19 04:04 Est GFR (MDRD) Af Amer > 60 (>60) 01/04/19 04:04 Est GFR (MDRD) Non-Af > 60 (>60) 01/04/19 04:04 Glucose 108 mg/dL (65-99) H 01/04/19 04:04 POC Glucose (mg/dL) 133 mg/dL (65-99) H 01/04/19 05:37 Calcium 7.6 mg/dL (8.5-10.1) L 01/04/19 04:04 Corrected Calcium 9.8 mg/dL (8.5-10.1) 01/04/19 04:04 Magnesium 1.6 mg/dL (1.7-2.9) L 01/04/19 04:04 Total Bilirubin 0.20 mg/dL (0.2-1.0) 01/04/19 04:04 AST 11 Units/L (15-37) L 01/04/19 04:04 ALT 6 Units/L (12-78) L 01/04/19 04:04 Alkaline Phosphatase 75 Units/L (46-116) 01/04/19 04:04 Total Protein 3.8 g/dL (6.4-8.2) L 01/04/19 04:04 Albumin 1.2 g/dL (3.4-5.0) L 01/04/19 04:04 Globulin 2.6 g/dL (2.5-4.5) 01/04/19 04:04 Albumin/Globulin Ratio 0.5 Ratio (1.1-2.1) L 01/04/19 04:04 Specimen Type Catherized urine 12/30/18 12:15 Urine Color Yellow (YELLOW) 12/30/18 12:15 Urine Appearance Clear (CLEAR) 12/30/18 12:15 Urine pH 6.5 (5.0 - 8.0) 12/30/18 12:15 Ur Specific [place] 1.015 (1.000-1.030) 12/30/18 12:15 Urine Protein 1+ (NEGATIVE) 12/30/18 12:15 Urine Glucose (UA) Negative (NEGATIVE) 12/30/18 12:15 Urine Ketones Negative (NEGATIVE) 12/30/18 12:15 Urine Occult Blood 1+ (NEGATIVE) 12/30/18 12:15 Urine Nitrite Negative (NEGATIVE) 12/30/18 12:15 Urine Bilirubin Negative (NEGATIVE) 12/30/18 12:15 Urine Urobilinogen Normal (NORMAL) 12/30/18 12:15 Ur Leukocyte Esterase Negative (NEGATIVE) 12/30/18 12:15 Urine RBC 3-5 /HPF (NONE SEEN) 12/30/18 12:15 Urine WBC 3-5 /HPF (NONE SEEN) 12/30/18 12:15 Ur Squamous Epith Cells Rare /HPF (NEGATIVE) 12/30/18 12:15 Amorphous Sediment Trace /HPF (NEGATIVE) 12/30/18 12:15 Urine Bacteria Trace /HPF (NEGATIVE) 12/30/18 12:15 Urine Mucus Many /HPF (NEGATIVE) 12/30/18 12:15 Ur Culture Indicated? No/not indicated 12/30/18 12:15 Tissue Pathology To follow 12/30/18 14:00 Blood Type A POSITIVE 01/03/19 09:12 Antibody Screen Negative 01/03/19 09:12 Crossmatch See Detail 01/03/19 09:12 - Assessment and Plan 1: Rt colon ca s/p resection . same PO care , OOB , DVT prophylaxis . Diabetic control . start on soft diet. PT/OT. could benefit from placement in NH for a week for PT /OT and reconditioning .. - Problem Patient Problems: Patient Problems Colon cancer (Acute) C18.9 S/P exploratory laparotomy (Acute) Z98.890 Atrial fibrillation (Acute) I48.91
[2019-01-04] MEDS ORDERED: LANTISEPTIC ONE (19:19)
[2019-01-04] MEDS: LANTISEPTIC TOP PRN (19:45)
[2019-01-05] MEDS: D5 1/2 NS 1000 ML 1,000 ML IV SCH ×2 (05:09→18:19)
[2019-01-05 05:59] LABS: BASOPHILS # (AUTO) 0.1 X10^3/uL (0.0-0.1); BASOPHILS % (AUTO) 0.8 % (0.2-1.0); EOSINOPHILS # (AUTO) 0.3 x10^3/uL (0.0-0.2); EOSINOPHILS % (AUTO) 3.1 % (0.9-2.9); HEMATOCRIT 29.3 % (36.0-47.0); HEMOGLOBIN 9.3 g/dL (12.0-16.0); LYMPHOCYTES # (AUTO) 1.1 X10^3/uL (1.3-2.9); LYMPHOCYTES % (AUTO) 12.8 % (21.0-51.0); MEAN CORPUSCULAR HEMOGLOBIN 26.1 pg (27.0-34.0); MEAN CORPUSCULAR HGB CONC 31.7 g/dL (33.0-35.0); MEAN CORPUSCULAR VOLUME 82.1 fL (80.0-100.0); MEAN PLATELET VOLUME 8.3 fL (7.4-11.0); MONOCYTES # (AUTO) 0.8 x10^3/uL (0.3-0.8); NEUTROPHILS # (AUTO) 6.2 x10^3/uL (2.2-4.8); NEUTROPHILS % (AUTO) 73.3 % (42.0-75.0); PLATELET COUNT 270 X10^3/uL (150.0-450.0); RED BLOOD COUNT 3.57 X10^6/uL (3.5-5.4); RED CELL DISTRIBUTION WIDTH 19.3 % (11.6-16.5); WHITE BLOOD COUNT 8.4 X10^3/uL (3.6-10.0)
[2019-01-05 06:22] LABS: ALANINE AMINOTRANSFERASE 8 Units/L (12-78); ALBUMIN 1.2 g/dL (3.4-5.0); ALKALINE PHOSPHATASE 74 Units/L (46-116); ASPARTATE AMINO TRANSFERASE 13 Units/L (15-37); BLOOD UREA NITROGEN 8 mg/dL (7-18); CALCIUM 7.8 mg/dL (8.5-10.1); CARBON DIOXIDE 24.6 mmol/L (21-32); CHLORIDE 110 mmol/L (98-107); COR NA(FOR HYPERGLY) 143 mmol/L (136-145); CREATININE 0.49 mg/dL (0.55-1.02); MAGNESIUM 1.8 mg/dL (1.7-2.9); SODIUM 142 mmol/L (136-145); TOTAL PROTEIN 3.9 g/dL (6.4-8.2); eGFR NON BLACK RACES > 60 (>60)
[2019-01-05] MEDS: LANTISEPTIC TOP PRN ×2 (06:25→21:30)
[2019-01-05] MEDS: NORCO 5/325 MG TAB PO PRN ×4 (07:12→22:45)
--- NOTE | 2019-01-05 07:42 | PCM.PROG ---
Progress Note - Progress Note for Day of Date of Exam: 01/04/19 - Subjective Subjective: [id number] ADMITTED ON 12/29, Post Op rt colectomy , repair incisional hernia day 4. She c/o moderate incisional pain this morning. Pathology is pending, however, recommends Oncologist after DC. Pt was up in chair most of the night last night, tolerated well. She has been passing flatus. Pain controlled at this time. Diet advanced per surgery. Abnormal lab values include the following: hgb 9.4, hct 30.0, potassium 3.1, chloride 108, glucose 108, calcium 7.6, ast 11, alt 6, total protein 3.8, albumin 1.2. We will continue with pain control and current plan of care today. will continue to follow patient. Otherwise, we will follow up with am labs and continue to monitor. - Past Medical Family Social History Past Med/Fam/Surg Hx: No changes since H&P Allergies: Allergies Sulfa (Sulfonamide Antibiotics) [SULFA] Adverse Reaction (Verified 12/30/18 14:16) - Review of Systems ROS: No change since H&P - Vital Signs and I&O's Vital Signs: Temperature 98.1 F Pulse Rate 69 Respiratory Rate 18 Blood Pressure [Right Arm] 126/58 Blood Pressure 122/59 O2 Sat by Pulse Oximetry 99 Intake and Output: Intake & Output 01/02/19 01/03/19 01/04/19 01/05/19 11:59 11:59 11:59 11:59 Intake Total 2550 / 2550 140 / 140 920 / 920 1480 / 1480 Output Total 1040 / 1040 900 / 900 3600 / 3600 1000 / 1000 Balance 1510 / 1510 -760 / -760 -2680 / -2680 480 / 480 - Physical Exam Oriented: Normal Eyes: Normal Ear: Normal Nose: Normal Throat: Normal Respiratory: Diminished Cardiovascular: Irregular (regularly), Murmur : Normal Auscultation: Bowel Sounds: Normal Tenderness: Diffuse Skin: Decreased Turgur, Wound (right side post operative wound with dressing intact, esther drain) Musculoskeletal: Back:Lumbar Psychiatric: Anxiety Mood Description: Calm Speech Pattern: Clear, Appropriate - Laboratory and Diagnostics Result Diagrams: 01/05/19 04:08 01/05/19 04:08 Labs: Laboratory WBC 8.4 X10^3/uL (3.6-10.0) 01/05/19 04:08 RBC 3.57 X10^6/uL (3.5-5.4) 01/05/19 04:08 Hgb 9.3 g/dL (12.0-16.0) L 01/05/19 04:08 Hct 29.3 % (36.0-47.0) L 01/05/19 04:08 MCV 82.1 fL (80.0-100.0) 01/05/19 04:08 MCH 26.1 pg (27.0-34.0) L 01/05/19 04:08 MCHC 31.7 g/dL (33.0-35.0) L 01/05/19 04:08 RDW 19.3 % (11.6-16.5) H 01/05/19 04:08 Plt Count 270 X10^3/uL (150.0-450.0) 01/05/19 04:08 Plt Count Comment Adequate (ADEQUATE) 01/04/19 04:04 MPV 8.3 fL (7.4-11.0) 01/05/19 04:08 Neut % (Auto) 73.3 % (42.0-75.0) 01/05/19 04:08 Lymph % (Auto) 12.8 % (21.0-51.0) L 01/05/19 04:08 [place] % (Auto) 10.0 % (0.0-13.0) 01/05/19 04:08 Eos % (Auto) 3.1 % (0.9-2.9) H 01/05/19 04:08 Baso % (Auto) 0.8 % (0.2-1.0) 01/05/19 04:08 Neut # (Auto) 6.2 x10^3/uL (2.2-4.8) H 01/05/19 04:08 Lymph # (Auto) 1.1 X10^3/uL (1.3-2.9) L 01/05/19 04:08 [place] # (Auto) 0.8 x10^3/uL (0.3-0.8) 01/05/19 04:08 Eos # (Auto) 0.3 x10^3/uL (0.0-0.2) H 01/05/19 04:08 Baso # (Auto) 0.1 X10^3/uL (0.0-0.1) 01/05/19 04:08 Absolute Nucleated RBC 0.0 /100WBC 01/05/19 04:08 Plt Morphology Comment Normal (NORMAL) 01/04/19 04:04 RBC Morphology Abnormal (NORMAL) A 01/04/19 04:04 Hypochromasia Slight A 01/04/19 04:04 Anisocytosis Slight A 01/03/19 05:33 Sodium 142 mmol/L (136-145) 01/05/19 04:08 Corrected Sodium 143 mmol/L (136-145) 01/05/19 04:08 Potassium 3.7 mmol/L (3.5-5.1) 01/05/19 04:08 Chloride 110 mmol/L (98-107) H 01/05/19 04:08 Carbon Dioxide 24.6 mmol/L (21-32) 01/05/19 04:08 BUN 8 mg/dL (7-18) 01/05/19 04:08 Creatinine 0.49 mg/dL (0.55-1.02) L 01/05/19 04:08 Est GFR (MDRD) Af Amer > 60 (>60) 01/05/19 04:08 Est GFR (MDRD) Non-Af > 60 (>60) 01/05/19 04:08 Glucose 121 mg/dL (65-99) H 01/05/19 04:08 POC Glucose (mg/dL) 133 mg/dL (65-99) H 01/04/19 05:37 Calcium 7.8 mg/dL (8.5-10.1) L 01/05/19 04:08 Corrected Calcium 10.0 mg/dL (8.5-10.1) 01/05/19 04:08 Magnesium 1.8 mg/dL (1.7-2.9) 01/05/19 04:08 Total Bilirubin 0.20 mg/dL (0.2-1.0) 01/05/19 04:08 AST 13 Units/L (15-37) L 01/05/19 04:08 ALT 8 Units/L (12-78) L 01/05/19 04:08 Alkaline Phosphatase 74 Units/L (46-116) 01/05/19 04:08 Total Protein 3.9 g/dL (6.4-8.2) L 01/05/19 04:08 Albumin 1.2 g/dL (3.4-5.0) L 01/05/19 04:08 Globulin 2.7 g/dL (2.5-4.5) 01/05/19 04:08 Albumin/Globulin Ratio 0.4 Ratio (1.1-2.1) L 01/05/19 04:08 Specimen Type Catherized urine 12/30/18 12:15 Urine Color Yellow (YELLOW) 12/30/18 12:15 Urine Appearance Clear (CLEAR) 12/30/18 12:15 Urine pH 6.5 (5.0 - 8.0) 12/30/18 12:15 Ur Specific [place] 1.015 (1.000-1.030) 12/30/18 12:15 Urine Protein 1+ (NEGATIVE) 12/30/18 12:15 Urine Glucose (UA) Negative (NEGATIVE) 12/30/18 12:15 Urine Ketones Negative (NEGATIVE) 12/30/18 12:15 Urine Occult Blood 1+ (NEGATIVE) 12/30/18 12:15 Urine Nitrite Negative (NEGATIVE) 12/30/18 12:15 Urine Bilirubin Negative (NEGATIVE) 12/30/18 12:15 Urine Urobilinogen Normal (NORMAL) 12/30/18 12:15 Ur Leukocyte Esterase Negative (NEGATIVE) 12/30/18 12:15 Urine RBC 3-5 /HPF (NONE SEEN) 12/30/18 12:15 Urine WBC 3-5 /HPF (NONE SEEN) 12/30/18 12:15 Ur Squamous Epith Cells Rare /HPF (NEGATIVE) 12/30/18 12:15 Amorphous Sediment Trace /HPF (NEGATIVE) 12/30/18 12:15 Urine Bacteria Trace /HPF (NEGATIVE) 12/30/18 12:15 Urine Mucus Many /HPF (NEGATIVE) 12/30/18 12:15 Ur Culture Indicated? No/not indicated 12/30/18 12:15 Tissue Pathology To follow 12/30/18 14:00 Blood Type A POSITIVE 01/03/19 09:12 Antibody Screen Negative 01/03/19 09:12 Crossmatch See Detail 01/03/19 09:12
[2019-01-05] MEDS: PROTONIX INJ 40 MG VIAL IVP SCH (08:14)
[2019-01-05] MEDS: LOVENOX INJ 40 MG SYR SC SCH (08:14)
--- NOTE | 2019-01-05 10:03 | DR.PROGNOT ---
Hospital Progress Notes - Progress Note for Day of: Progress Note Date: 01/05/19 - Chief Complaint Chief Complaint: Posrt Op rt colectomy , repair incisional hernia day 6.. doing fairly well , only moderate incisional pain . no SOB, no CP .. . tolerating diet and had normal BM , no bleeding. hypokalemia is corrected . 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 - Past Medical Family Social History Past Med/Fam/Surg Hx: No changes since H&P Allergies: Allergies Sulfa (Sulfonamide Antibiotics) [SULFA] Adverse Reaction (Verified 12/30/18 14:16) - Review Of Systems ROS: No change since H&P - Vital Signs Vital Signs: Temperature 97.8 F Pulse Rate 66 Respiratory Rate 12 Blood Pressure [Right Arm] 126/58 Blood Pressure 100/51 O2 Sat by Pulse Oximetry 99 - Physical Exam Oriented: Normal Eyes: Normal Ear: Normal Nose: Normal Throat: Normal Respiratory: Diminished Cardiovascular: Irregular (regularly), Murmur : Normal GI:Auscultation: Normal GI:Palpation: Normal GI: Tenderness: Diffuse Skin: Decreased Turgur, Wound (dressing was changed , Clean incision , no infection ..) Musculoskeletal: Back:Lumbar Psychiatric: Anxiety Mood Description: Calm Speech Pattern: Clear, Appropriate - Laboratory and Diagnostics Result Diagrams: 01/05/19 04:08 01/05/19 04:08 Labs: Laboratory WBC 8.4 X10^3/uL (3.6-10.0) 01/05/19 04:08 RBC 3.57 X10^6/uL (3.5-5.4) 01/05/19 04:08 Hgb 9.3 g/dL (12.0-16.0) L 01/05/19 04:08 Hct 29.3 % (36.0-47.0) L 01/05/19 04:08 MCV 82.1 fL (80.0-100.0) 01/05/19 04:08 MCH 26.1 pg (27.0-34.0) L 01/05/19 04:08 MCHC 31.7 g/dL (33.0-35.0) L 01/05/19 04:08 RDW 19.3 % (11.6-16.5) H 01/05/19 04:08 Plt Count 270 X10^3/uL (150.0-450.0) 01/05/19 04:08 Plt Count Comment Adequate (ADEQUATE) 01/04/19 04:04 MPV 8.3 fL (7.4-11.0) 01/05/19 04:08 Neut % (Auto) 73.3 % (42.0-75.0) 01/05/19 04:08 Lymph % (Auto) 12.8 % (21.0-51.0) L 01/05/19 04:08 [place] % (Auto) 10.0 % (0.0-13.0) 01/05/19 04:08 Eos % (Auto) 3.1 % (0.9-2.9) H 01/05/19 04:08 Baso % (Auto) 0.8 % (0.2-1.0) 01/05/19 04:08 Neut # (Auto) 6.2 x10^3/uL (2.2-4.8) H 01/05/19 04:08 Lymph # (Auto) 1.1 X10^3/uL (1.3-2.9) L 01/05/19 04:08 [place] # (Auto) 0.8 x10^3/uL (0.3-0.8) 01/05/19 04:08 Eos # (Auto) 0.3 x10^3/uL (0.0-0.2) H 01/05/19 04:08 Baso # (Auto) 0.1 X10^3/uL (0.0-0.1) 01/05/19 04:08 Absolute Nucleated RBC 0.0 /100WBC 01/05/19 04:08 Plt Morphology Comment Normal (NORMAL) 01/04/19 04:04 RBC Morphology Abnormal (NORMAL) A 01/04/19 04:04 Hypochromasia Slight A 01/04/19 04:04 Anisocytosis Slight A 01/03/19 05:33 Sodium 142 mmol/L (136-145) 01/05/19 04:08 Corrected Sodium 143 mmol/L (136-145) 01/05/19 04:08 Potassium 3.7 mmol/L (3.5-5.1) 01/05/19 04:08 Chloride 110 mmol/L (98-107) H 01/05/19 04:08 Carbon Dioxide 24.6 mmol/L (21-32) 01/05/19 04:08 BUN 8 mg/dL (7-18) 01/05/19 04:08 Creatinine 0.49 mg/dL (0.55-1.02) L 01/05/19 04:08 Est GFR (MDRD) Af Amer > 60 (>60) 01/05/19 04:08 Est GFR (MDRD) Non-Af > 60 (>60) 01/05/19 04:08 Glucose 121 mg/dL (65-99) H 01/05/19 04:08 POC Glucose (mg/dL) 133 mg/dL (65-99) H 01/04/19 05:37 Calcium 7.8 mg/dL (8.5-10.1) L 01/05/19 04:08 Corrected Calcium 10.0 mg/dL (8.5-10.1) 01/05/19 04:08 Magnesium 1.8 mg/dL (1.7-2.9) 01/05/19 04:08 Total Bilirubin 0.20 mg/dL (0.2-1.0) 01/05/19 04:08 AST 13 Units/L (15-37) L 01/05/19 04:08 ALT 8 Units/L (12-78) L 01/05/19 04:08 Alkaline Phosphatase 74 Units/L (46-116) 01/05/19 04:08 Total Protein 3.9 g/dL (6.4-8.2) L 01/05/19 04:08 Albumin 1.2 g/dL (3.4-5.0) L 01/05/19 04:08 Globulin 2.7 g/dL (2.5-4.5) 01/05/19 04:08 Albumin/Globulin Ratio 0.4 Ratio (1.1-2.1) L 01/05/19 04:08 Specimen Type Catherized urine 12/30/18 12:15 Urine Color Yellow (YELLOW) 12/30/18 12:15 Urine Appearance Clear (CLEAR) 12/30/18 12:15 Urine pH 6.5 (5.0 - 8.0) 12/30/18 12:15 Ur Specific [place] 1.015 (1.000-1.030) 12/30/18 12:15 Urine Protein 1+ (NEGATIVE) 12/30/18 12:15 Urine Glucose (UA) Negative (NEGATIVE) 12/30/18 12:15 Urine Ketones Negative (NEGATIVE) 12/30/18 12:15 Urine Occult Blood 1+ (NEGATIVE) 12/30/18 12:15 Urine Nitrite Negative (NEGATIVE) 12/30/18 12:15 Urine Bilirubin Negative (NEGATIVE) 12/30/18 12:15 Urine Urobilinogen Normal (NORMAL) 12/30/18 12:15 Ur Leukocyte Esterase Negative (NEGATIVE) 12/30/18 12:15 Urine RBC 3-5 /HPF (NONE SEEN) 12/30/18 12:15 Urine WBC 3-5 /HPF (NONE SEEN) 12/30/18 12:15 Ur Squamous Epith Cells Rare /HPF (NEGATIVE) 12/30/18 12:15 Amorphous Sediment Trace /HPF (NEGATIVE) 12/30/18 12:15 Urine Bacteria Trace /HPF (NEGATIVE) 12/30/18 12:15 Urine Mucus Many /HPF (NEGATIVE) 12/30/18 12:15 Ur Culture Indicated? No/not indicated 12/30/18 12:15 Tissue Pathology To follow 12/30/18 14:00 Blood Type A POSITIVE 01/03/19 09:12 Antibody Screen Negative 01/03/19 09:12 Crossmatch See Detail 01/03/19 09:12 - Assessment and Plan 1: colon ca stage 111 ( 6 out 17 nodes positive ). same PO care , OOB , DVT prophylaxis . Diabetic control . PT/OT. could be d/c in AM and future referral to oncology . - Problem Patient Problems: Patient Problems Colon cancer (Acute) C18.9 S/P exploratory laparotomy (Acute) Z98.890 Atrial fibrillation (Acute) I48.91
[2019-01-05] MEDS: ALBUMIN HUMAN 25%- 100 ML 100 ML IV SCH (11:43)
[2019-01-05] MEDS: K-DUR TAB 20 MEQ PO PRN (18:19)
--- NOTE | 2019-01-05 18:47 | PCM.PROG ---
Progress Note - Progress Note for Day of Date of Exam: 01/05/19 - Subjective Subjective: [id number] ADMITTED ON 12/29, Post Op rt colectomy , repair incisional hernia day 5. She c/o moderate incisional pain this morning, slightly improved since yesterday. Pathology report is back and reveals adenocarcinoma of the colon with 6/17 nodes positive for mets. instructed patient that she would need to see oncology after discharge. She has been passing flatus. Pain controlled at this time. Abnormal lab values include the following: hgb 9.3, hct 29.3, chloride 110, creatinine 0.49, glucose 121, calcium 7.8, ast 13, alt 8, total protein 3.9, albumin 1.2. We will continue with pain control and current plan of care today. We will start albumin 25% iv daily. will continue to follow patient. Otherwise, we will follow up with am labs and continue to monitor. - Past Medical Family Social History Past Med/Fam/Surg Hx: No changes since H&P Allergies: Allergies Sulfa (Sulfonamide Antibiotics) [SULFA] Adverse Reaction (Verified 12/30/18 14:16) - Review of Systems ROS: No change since H&P - Vital Signs and I&O's Vital Signs: Temperature 97.9 F Pulse Rate [Apical] 59 Pulse Rate 57 Respiratory Rate 18 Blood Pressure [Right Arm] 125/56 Blood Pressure 100/49 O2 Sat by Pulse Oximetry 98 Intake and Output: Intake & Output 01/03/19 01/04/19 01/05/19 01/06/19 11:59 11:59 11:59 11:59 Intake Total 140 / 140 920 / 920 1480 / 1480 730 / 730 Output Total 900 / 900 3600 / 3600 1000 / 1000 Balance -760 / -760 -2680 / -2680 480 / 480 730 / 730 - Physical Exam Oriented: Normal Eyes: Normal Ear: Normal Nose: Normal Throat: Normal Respiratory: Diminished Cardiovascular: Irregular (regularly), Murmur : Normal Auscultation: Bowel Sounds: Normal Tenderness: Diffuse Skin: Decreased Turgur, Wound (dressing was changed , Clean incision , no infection ..) Musculoskeletal: Back:Lumbar Psychiatric: Anxiety Mood Description: Calm Speech Pattern: Clear, Appropriate - Laboratory and Diagnostics Result Diagrams: 01/05/19 04:08 01/05/19 04:08 Labs: Laboratory WBC 8.4 X10^3/uL (3.6-10.0) 01/05/19 04:08 RBC 3.57 X10^6/uL (3.5-5.4) 01/05/19 04:08 Hgb 9.3 g/dL (12.0-16.0) L 01/05/19 04:08 Hct 29.3 % (36.0-47.0) L 01/05/19 04:08 MCV 82.1 fL (80.0-100.0) 01/05/19 04:08 MCH 26.1 pg (27.0-34.0) L 01/05/19 04:08 MCHC 31.7 g/dL (33.0-35.0) L 01/05/19 04:08 RDW 19.3 % (11.6-16.5) H 01/05/19 04:08 Plt Count 270 X10^3/uL (150.0-450.0) 01/05/19 04:08 Plt Count Comment Adequate (ADEQUATE) 01/04/19 04:04 MPV 8.3 fL (7.4-11.0) 01/05/19 04:08 Neut % (Auto) 73.3 % (42.0-75.0) 01/05/19 04:08 Lymph % (Auto) 12.8 % (21.0-51.0) L 01/05/19 04:08 [place] % (Auto) 10.0 % (0.0-13.0) 01/05/19 04:08 Eos % (Auto) 3.1 % (0.9-2.9) H 01/05/19 04:08 Baso % (Auto) 0.8 % (0.2-1.0) 01/05/19 04:08 Neut # (Auto) 6.2 x10^3/uL (2.2-4.8) H 01/05/19 04:08 Lymph # (Auto) 1.1 X10^3/uL (1.3-2.9) L 01/05/19 04:08 [place] # (Auto) 0.8 x10^3/uL (0.3-0.8) 01/05/19 04:08 Eos # (Auto) 0.3 x10^3/uL (0.0-0.2) H 01/05/19 04:08 Baso # (Auto) 0.1 X10^3/uL (0.0-0.1) 01/05/19 04:08 Absolute Nucleated RBC 0.0 /100WBC 01/05/19 04:08 Plt Morphology Comment Normal (NORMAL) 01/04/19 04:04 RBC Morphology Abnormal (NORMAL) A 01/04/19 04:04 Hypochromasia Slight A 01/04/19 04:04 Anisocytosis Slight A 01/03/19 05:33 Sodium 142 mmol/L (136-145) 01/05/19 04:08 Corrected Sodium 143 mmol/L (136-145) 01/05/19 04:08 Potassium 3.7 mmol/L (3.5-5.1) 01/05/19 04:08 Chloride 110 mmol/L (98-107) H 01/05/19 04:08 Carbon Dioxide 24.6 mmol/L (21-32) 01/05/19 04:08 BUN 8 mg/dL (7-18) 01/05/19 04:08 Creatinine 0.49 mg/dL (0.55-1.02) L 01/05/19 04:08 Est GFR (MDRD) Af Amer > 60 (>60) 01/05/19 04:08 Est GFR (MDRD) Non-Af > 60 (>60) 01/05/19 04:08 Glucose 121 mg/dL (65-99) H 01/05/19 04:08 POC Glucose (mg/dL) 113 mg/dL (65-99) H 01/05/19 16:27 Calcium 7.8 mg/dL (8.5-10.1) L 01/05/19 04:08 Corrected Calcium 10.0 mg/dL (8.5-10.1) 01/05/19 04:08 Magnesium 1.8 mg/dL (1.7-2.9) 01/05/19 04:08 Total Bilirubin 0.20 mg/dL (0.2-1.0) 01/05/19 04:08 AST 13 Units/L (15-37) L 01/05/19 04:08 ALT 8 Units/L (12-78) L 01/05/19 04:08 Alkaline Phosphatase 74 Units/L (46-116) 01/05/19 04:08 Total Protein 3.9 g/dL (6.4-8.2) L 01/05/19 04:08 Albumin 1.2 g/dL (3.4-5.0) L 01/05/19 04:08 Globulin 2.7 g/dL (2.5-4.5) 01/05/19 04:08 Albumin/Globulin Ratio 0.4 Ratio (1.1-2.1) L 01/05/19 04:08 Specimen Type Catherized urine 12/30/18 12:15 Urine Color Yellow (YELLOW) 12/30/18 12:15 Urine Appearance Clear (CLEAR) 12/30/18 12:15 Urine pH 6.5 (5.0 - 8.0) 12/30/18 12:15 Ur Specific [place] 1.015 (1.000-1.030) 12/30/18 12:15 Urine Protein 1+ (NEGATIVE) 12/30/18 12:15 Urine Glucose (UA) Negative (NEGATIVE) 12/30/18 12:15 Urine Ketones Negative (NEGATIVE) 12/30/18 12:15 Urine Occult Blood 1+ (NEGATIVE) 12/30/18 12:15 Urine Nitrite Negative (NEGATIVE) 12/30/18 12:15 Urine Bilirubin Negative (NEGATIVE) 12/30/18 12:15 Urine Urobilinogen Normal (NORMAL) 12/30/18 12:15 Ur Leukocyte Esterase Negative (NEGATIVE) 12/30/18 12:15 Urine RBC 3-5 /HPF (NONE SEEN) 12/30/18 12:15 Urine WBC 3-5 /HPF (NONE SEEN) 12/30/18 12:15 Ur Squamous Epith Cells Rare /HPF (NEGATIVE) 12/30/18 12:15 Amorphous Sediment Trace /HPF (NEGATIVE) 12/30/18 12:15 Urine Bacteria Trace /HPF (NEGATIVE) 12/30/18 12:15 Urine Mucus Many /HPF (NEGATIVE) 12/30/18 12:15 Ur Culture Indicated? No/not indicated 12/30/18 12:15 Tissue Pathology To follow 12/30/18 14:00 Blood Type A POSITIVE 01/03/19 09:12 Antibody Screen Negative 01/03/19 09:12 Crossmatch See Detail 01/03/19 09:12
[2019-01-06 05:19] LABS: BASOPHILS # (AUTO) 0.1 X10^3/uL (0.0-0.1); BASOPHILS % (AUTO) 1.9 % (0.2-1.0); EOSINOPHILS # (AUTO) 0.4 x10^3/uL (0.0-0.2); EOSINOPHILS % (AUTO) 5.1 % (0.9-2.9); HEMOGLOBIN 8.7 g/dL (12.0-16.0); LYMPHOCYTES # (AUTO) 1.6 X10^3/uL (1.3-2.9); MEAN CORPUSCULAR HEMOGLOBIN 26.7 pg (27.0-34.0); MEAN CORPUSCULAR HGB CONC 32.1 g/dL (33.0-35.0); MEAN CORPUSCULAR VOLUME 83.1 fL (80.0-100.0); MEAN PLATELET VOLUME 8.4 fL (7.4-11.0); MONOCYTES # (AUTO) 0.7 x10^3/uL (0.3-0.8); NEUTROPHILS # (AUTO) 4.8 x10^3/uL (2.2-4.8); PLATELET COUNT 283 X10^3/uL (150.0-450.0); RED BLOOD COUNT 3.25 X10^6/uL (3.5-5.4); RED CELL DISTRIBUTION WIDTH 19.4 % (11.6-16.5); WHITE BLOOD COUNT 7.7 X10^3/uL (3.6-10.0)
[2019-01-06 05:35] LABS: ALANINE AMINOTRANSFERASE 9 Units/L (12-78); ALBUMIN 1.5 g/dL (3.4-5.0); ALKALINE PHOSPHATASE 67 Units/L (46-116); ASPARTATE AMINO TRANSFERASE 11 Units/L (15-37); BLOOD UREA NITROGEN 7 mg/dL (7-18); CARBON DIOXIDE 26.9 mmol/L (21-32); CHLORIDE 112 mmol/L (98-107); CREATININE 0.53 mg/dL (0.55-1.02); SODIUM 144 mmol/L (136-145); TOTAL PROTEIN 3.9 g/dL (6.4-8.2); eGFR NON BLACK RACES > 60 (>60)
[2019-01-06] MEDS ORDERED: LASIX IVP ONE (09:39)
[2019-01-06] MEDS: PROTONIX INJ 40 MG VIAL IVP SCH (09:40)
[2019-01-06] MEDS: NORCO 5/325 MG TAB PO PRN (09:40)
[2019-01-06] MEDS: LOVENOX INJ 40 MG SYR SC SCH (09:41)
[2019-01-06] MEDS: ALBUMIN HUMAN 25%- 100 ML 100 ML IV SCH (09:41)
[2019-01-06 13:49] VITALS: BP 132/78
== END 2019-01-06 15:20 | disposition home health service (06) | DRG 375 ==
LOC: SURG1 08:22 → ICU 08:31
PROVIDERS: ADMIT Surgery; ATTEND Surgery
PROC: HEMICOL (2018-12-30 12:30)
DX: K21.9 Gastro-esophageal reflux disease without esophagitis; K43.2 Incisional hernia without obstruction or gangrene; F41.8 Other specified anxiety disorders; I48.91 Unspecified atrial fibrillation; E11.65 Type 2 diabetes mellitus with hyperglycemia; K56.51 Intestinal adhesions [bands], with partial obstruction; D64.89 Other specified anemias; R26.89 Other abnormalities of gait and mobility; Z98.890 Other specified postprocedural states; C77.2 Secondary and unspecified malignant neoplasm of intra-abdominal lymph nodes; I10 Essential (primary) hypertension; C18.2 Malignant neoplasm of ascending colon; K66.0 Peritoneal adhesions (postprocedural) (postinfection)
CPT/HCPCS: 36415; 36430; 71010; 71045; 80053; 81001; 82607; 82728; 82746; 83540; 83735; 84132; 84466; 85014; 85018; 85025; 86850; 86900; 86901; 86922; 88309; 93005; 93306; 97110; 97116; 97162; 97166; 97530; 97535; A4222; C9113; J3490; P9016; P9047; S0030; J0330; J0690; J1100; J1170; J1200; J1650; J1885; J1940; J2001; J2250; J2405; J2704; J2710; J3010; J3475; J3480; J7030; J7040; J7120; S5010

== ENCOUNTER 2022-01-24 11:07 | Inpatient (IN) ==
[2022-01-24] MEDS ORDERED: NS 500 ML IV 500 ML IV ONE ×4 (11:13→13:18)
--- NOTE | 2022-01-24 11:20 | DR.GENAD ---
HPI Time Seen Time Seen by Provider: 01/24/22 11:36 Complaint/Symptoms Chief Complaint Doctors Comments: 71 y/o female sent over from OR for evaluation. Found to have low BP and altered mental status this AM. Pt essentially non verbal, making unintelligble repsonses to questions. Pt reportedly fell last 1-2 weeks, had a head injury then, was evaluated in the ER then. Is on Eliquis. No report from the OR of specific complaints. Pt unable to offer complaints. COVID-19 Coronavirus risk:travel/contact w/high risk person: No Has patient experienced Coronavirus symptoms: No Nurses notes reviewed Nurses Notes Review: Yes Source History Provided: Skilled Nursing Mode of Arrival Mode of Arrival: Stretcher PMH PMH Past Medical History: Diabetes Past Surgical History: Yes Surgical History: Hysterectomy, Joint Replacement, Ortho Surgery and Tonsillectomy Family History Family Medical History: Cancer, [place], Coronary Artery Disease and Hypertension Social History Do you use any recreational Drugs:: No Travel Risk Coronavirus risk:travel/contact w/high risk person: No Has patient experienced Coronavirus symptoms: No ROS Review of Systems Unable to Obtain Due To: Altered mental status PE Vital Signs Vitals: Temperature 99 F Pulse Rate 76 Respiratory Rate 17 Blood Pressure [Left Arm] 116/78 Blood Pressure 100/50 O2 Sat by Pulse Oximetry 93 General Limitations: Altered Mental Status General Appearance: Other (awake, but somnolent. Non verbal) Eyes Eye exam: PERRL and EOMI ENT ENT Exam: Other (oral membranes dry) Neck Neck Exam: negative Tenderness Chest Chest Inspection: Normal Inspection Respiratory Respiratory Exam: Normal Lung Sounds Bilat; negative Accessory Muscle Use and Respiratory Distress Respiratory Exam: Bilateral: Clear to Auscultation Cardiovascular Cardiovascular Exam: Regular Rate, Normal Rhythm and Normal Heart Sounds Abdominal Exam Abdominal Exam: Tenderness (across upper abd, with guarding, degree of rigidity. Has decreased bowel sounds.) Extremities Extremities Exam: Other (R foot turned outward, + pain RLE with passive ROM); negative Edema Neurologic Neurological Exam: Other (awake, drowsy. ) Skin Skin Exam: Warm and Dry MDM Differential Diagnosis Differential Diagnosis: sepsis, UTI, pneumonia, intra abdominal pathology. COURSE Treatment Treatment: 71 y/o female sent from OR, ill this AM. W/u initiated. Given IV fluids. Pt with altered mental status, low BP. 1420 - w/u shows pt with UTI, TNTC WBCs on U/A. Has elevated lactic acid, 3.8. Also with elevated Cr 3.5, had normal Cr last week. WBC mildly elevated at 12.9K. Pt was given IV fluids, IV rocephin. CXR with possible fluid overload, added BNP. CT of the abd/pelvis shows degree of ascities, + umbilical hernia, does not appear incarerated. Recommend admission, will discuss with her attending, Dr Pardo. 1442 - Dr Pardo accepts the admission. Pt's BNP returned after admitted. + 1,100 BNP, CXR c/w fluid overload. Given IV furosemide x 1 on floor. ROR Labs Reviewed Laboratory Results Reviewed?: Yes Result Diagrams: 01/24/22 11:29 01/24/22 11:29 Laboratory: WBC 12.9 X10^3/uL (3.6-10.0) H 01/24/22 11:29 RBC 2.94 X10^6/uL (3.5-5.4) L 01/24/22 11:29 Hgb 8.9 g/dL (12.0-16.0) L 01/24/22 11:29 Hct 26.8 % (36.0-47.0) L 01/24/22 11:29 MCV 91.0 fL (80.0-100.0) 01/24/22 11:29 MCH 30.2 pg (27.0-34.0) 01/24/22 11:29 MCHC 33.2 g/dL (33.0-35.0) 01/24/22 11:29 RDW 18.9 % (11.6-16.5) H 01/24/22 11:29 Plt Count 227 X10^3/uL (150.0-450.0) 01/24/22 11:29 Plt Count Comment Adequate (ADEQUATE) 01/24/22 11:29 MPV 8.2 fL (7.4-11.0) 01/24/22 11:29 Neut % (Auto) 89.5 % (42.0-75.0) H 01/24/22 11:29 Lymph % (Auto) 3.5 % (21.0-51.0) L 01/24/22 11:29 [place] % (Auto) 5.8 % (0.0-13.0) 01/24/22 11:29 Eos % (Auto) 0.9 % (0.9-2.9) 01/24/22 11: Baso % (Auto) 0.3 % (0.2-1.0) 01/24/22 11:29 Neut # (Auto) 11.6 x10^3/uL (2.2-4.8) H 01/24/22 11:29 Lymph # (Auto) 0.5 X10^3/uL (1.3-2.9) L 01/24/22 11:29 [place] # (Auto) 0.7 x10^3/uL (0.3-0.8) 01/24/22 11:29 Eos # (Auto) 0.1 x10^3/uL (0.0-0.2) 01/24/22 11: Baso # (Auto) 0.0 X10^3/uL (0.0-0.1) 01/24/22 11:29 Absolute Nucleated RBC 0.0 /100WBC 01/24/22 11:29 Total Counted 100 01/24/22 11:29 Neutrophils % (Manual) 85 % (39-76) H 01/24/22 11:29 Band Neutrophils % 4 % (0-10) 01/24/22 11:29 Lymphocytes % (Manual) 6 % (13-43) L 01/24/22 11:29 Monocytes % (Manual) 3 % (4-9) L 01/24/22 11:29 Metamyelocytes % 2 01/24/22 11:29 Plt Morphology Comment Normal (NORMAL) 01/24/22 11:29 RBC Morphology Abnormal (NORMAL) A 01/24/22 11:29 Anisocytosis Slight A 01/24/22 11:29 PT 26.9 SECONDS (11.8-14.3) 01/24/22 11:29 INR Target Range - 01/24/22 11:29 INR 2.63 (0.8-1.3) H 01/24/22 11:29 APTT 42.8 SECONDS (22.9-36.5) H 01/24/22 11:29 PTT Comment - 01/24/22 11:29 Sodium 132 mmol/L (136-145) L 01/24/22 11:29 Corrected Sodium TNP 01/24/22 11:29 Potassium 4.4 mmol/L (3.5-5.1) 01/24/22 11:29 Chloride 99 mmol/L (98-107) 01/24/22 11:29 Carbon Dioxide 17.1 mmol/L (21-32) L 01/24/22 11:29 BUN 60 mg/dL (7-18) H 01/24/22 11:29 Creatinine 3.56 mg/dL (0.55-1.02) H 01/24/22 11:29 Est GFR (MDRD) Af Amer 16 (>60) L 01/24/22 11:29 Est GFR (MDRD) Non-Af 13 (>60) L 01/24/22 11:29 Glucose 107 mg/dL (65-99) H 01/24/22 11:29 POC Glucose (mg/dL) 102 mg/dL (65-99) H 01/24/22 11:12 Lactic Acid 3.8 mmol/L (0.4-2.0) H 01/24/22 11:29 Calcium 8.8 mg/dL (8.5-10.1) 01/24/22 11:29 Corrected Calcium 11.0 mg/dL (8.5-10.1) H 01/24/22 11:29 Total Bilirubin 1.20 mg/dL (0.2-1.0) H 01/24/22 11:29 AST 35 Units/L (15-37) 01/24/22 11:29 ALT 17 Units/L (12-78) 01/24/22 11:29 Alkaline Phosphatase 128 Units/L (46-116) H 01/24/22 11:29 Creatine Kinase 335 Units/L (26-192) H 01/24/22 11:29 CK-MB (CK-2) 3.1 ng/mL (0-4.0) 01/24/22 11:29 CK/CKMB % Calc 0.9 % (<4) 01/24/22 11:29 Troponin I High Sens 8.8 ng/L (4.0-60.0) 01/24/22 11:29 B-Natriuretic Peptide 1010 pg/mL (0-79) H* 01/24/22 14:29 Total Protein 6.4 g/dL (6.4-8.2) 01/24/22 11:29 Albumin 1.3 g/dL (3.4-5.0) L 01/24/22 11:29 Globulin 5.1 g/dL (2.5-4.5) H 01/24/22 11:29 Albumin/Globulin Ratio 0.3 Ratio (1.1-2.1) L 01/24/22 11:29 Lipase 22 Units/L (73-393) L 01/24/22 11:29 Specimen Type Catherized urine 01/24/22 11:36 Urine Color Yellow (YELLOW) 01/24/22 11:36 Urine Appearance Cloudy (CLEAR) 01/24/22 11:36 Urine pH 5.0 (5.0 - 8.0) 01/24/22 11:36 Ur Specific [place] 1.025 (1.000-1.030) 01/24/22 11:36 Urine Protein 3+ (NEGATIVE) 01/24/22 11:36 Urine Glucose (UA) Negative (NEGATIVE) 01/24/22 11:36 Urine Ketones 1+ (NEGATIVE) 01/24/22 11:36 Urine Blood 4+ (NEGATIVE) 01/24/22 11:36 Urine Nitrite Negative (NEGATIVE) 01/24/22 11:36 Urine Bilirubin 1+ (NEGATIVE) 01/24/22 11:36 Urine Urobilinogen 1+ (NORMAL) 01/24/22 11:36 Ur Leukocyte Esterase 3+ (NEGATIVE) 01/24/22 11:36 Urine RBC 5-10 /HPF (0-3) A 01/24/22 11:36 Urine WBC Tntc /HPF (0-5) A 01/24/22 11:36 Ur Squamous Epith Cells Rare /HPF (NEGATIVE) 01/24/22 11:36 Amorphous Sediment 1+ /HPF (NEGATIVE) 01/24/22 11:36 Urine Bacteria Trace /HPF (NEGATIVE) 01/24/22 11:36 Ur Culture Indicated? Yes/culture set up 01/24/22 11:36 SARS-CoV-2 (PCR) Negative (NEGATIVE) 01/24/22 14:29 Influenza Type A (PCR) Negative (NEGATIVE) 01/24/22 14:29 Influenza Type B (PCR) Negative (NEGATIVE) 01/24/22 14:29 RSV (PCR) Negative (NEGATIVE) 01/24/22 14:29 Other Results Comments: Cr elevated, 3.56, as well as Lactic acid, 3.8. U/A with TNTC WBCs. EKG Rate: 76 [place]: Normal Rhythm: NSR Block: None Hypertrophy: None ST: Nonsp Opioid Opioid Risk Tool Age (Gee box if 16-45): No History of Preadolescent Sexual Abuse: No Total: 0 Total Score Risk Category: Low Risk Copyright: Fredi CERVANTES predicting aberrant behaviors Diagnosis Discharge Problem: Acute UTI, Acute kidney injury (nontraumatic) Sepsis Qualifiers: Sepsis type: sepsis due to unspecified organism Sepsis acute organ dysfunction status: with acute organ dysfunction Severe sepsis acute organ dysfunction type: acute renal failure Acute renal failure type: unspecified Severe sepsis shock status: unspecified Qualified Code(s): A41.9 - Sepsis, unspecified organism Instructions Forms: Precautions for COVID19 [facility] Social Distancing
[2022-01-24 11:48] LABS: BASOPHILS % (AUTO) 0.3 % (0.2-1.0); EOSINOPHILS # (AUTO) 0.1 x10^3/uL (0.0-0.2); EOSINOPHILS % (AUTO) 0.9 % (0.9-2.9); HEMATOCRIT 26.8 % (36.0-47.0); HEMOGLOBIN 8.9 g/dL (12.0-16.0); LYMPHOCYTES # (AUTO) 0.5 X10^3/uL (1.3-2.9); LYMPHOCYTES % (AUTO) 3.5 % (21.0-51.0); MEAN CORPUSCULAR HEMOGLOBIN 30.2 pg (27.0-34.0); MEAN CORPUSCULAR HGB CONC 33.2 g/dL (33.0-35.0); MEAN PLATELET VOLUME 8.2 fL (7.4-11.0); MONOCYTES # (AUTO) 0.7 x10^3/uL (0.3-0.8); MONOCYTES % (AUTO) 5.8 % (0.0-13.0); NEUTROPHILS # (AUTO) 11.6 x10^3/uL (2.2-4.8); NEUTROPHILS % (AUTO) 89.5 % (42.0-75.0); RED BLOOD COUNT 2.94 X10^6/uL (3.5-5.4); RED CELL DISTRIBUTION WIDTH 18.9 % (11.6-16.5); WHITE BLOOD COUNT 12.9 X10^3/uL (3.6-10.0)
[2022-01-24 11:59] LABS: BILIRUBIN,URINE 1+ (NEGATIVE); BLOOD/HEMOGLOBIN,URINE 4+ (NEGATIVE); GLUCOSE, URINE NEGATIVE (NEGATIVE); KETONES,URINE 1+ (NEGATIVE); LEUKOCYTE ESTERASE ,URINE 3+ (NEGATIVE); NITRITES,URINE NEGATIVE (NEGATIVE); PROTEIN,URINE 3+ (NEGATIVE); UROBILINOGEN,URINE 1+ (NORMAL)
[2022-01-24 12:08] LABS: APPEARANCE,URINE CLOUDY (CLEAR); COLOR,URINE YELLOW (YELLOW)
[2022-01-24 12:09] LABS: SQUAMOUS EPITHELIAL CELL,UR RARE /HPF (NEGATIVE)
[2022-01-24 12:10] LABS: BAND NEUTROPHILS % 4 % (0-10)
[2022-01-24 12:10] LABS: BACTERIA,URINE TRACE /HPF (NEGATIVE)
[2022-01-24 12:11] LABS: ANISOCYTOSIS SLIGHT; METAMYELOCYTES % 2; PLATELET MORPHOLOGY COMMENT NORMAL (NORMAL)
[2022-01-24 12:12] LABS: LACTIC ACID 3.8 mmol/L (0.4-2.0)
[2022-01-24 12:16] LABS: ALANINE AMINOTRANSFERASE 17 Units/L (12-78); ALBUMIN 1.3 g/dL (3.4-5.0); ALKALINE PHOSPHATASE 128 Units/L (46-116); ASPARTATE AMINO TRANSFERASE 35 Units/L (15-37); BLOOD UREA NITROGEN 60 mg/dL (7-18); CALCIUM 8.8 mg/dL (8.5-10.1); CARBON DIOXIDE 17.1 mmol/L (21-32); CHLORIDE 99 mmol/L (98-107); CKMB % 0.9 % (<4); CREATINE KINASE 335 Units/L (26-192); CREATINE KINASE MB 3.1 ng/mL (0-4.0); CREATININE 3.56 mg/dL (0.55-1.02); LIPASE 22 Units/L (73-393); SODIUM 132 mmol/L (136-145); TOTAL PROTEIN 6.4 g/dL (6.4-8.2); eGFR NON BLACK RACES 13 (>60)
--- NOTE | 2022-01-24 12:28 | CT ---
HISTORYAMS, RECENT FALLSTUDYHEAD (TRAUMA)COMPARISONCT head from 01/18/2022.TECHNIQUEMultiple axial images of the head were performed from the skullbase to the vertex using standard departmental protocol. Sagittal and coronal reformatted images were performed. Dose reduction techniques including Automated Exposure Control (AEC) and adjustment of mA and kV were utilized.FINDINGSThe lateral ventricles and basilar cisterns are patent.No parenchymal mass or hematoma. Mckeon-white differentiation appears acutely preserved. Mild low attenuation change in the subcortical and deep supratentorial white matter.No extra-axial collection.The globes are intact.No air fluid levels in the paranasal sinuses. Retention cyst in the right maxillary sinus. No paranasal sinus wall thickening or sclerosis. Mastoid air cells are clear.The calvarium is intact. Moderate left posterior scalp hematoma measuring up to 3.6 cm medial-lateral. See image 14 series 6.IMPRESSIONNo acute intracranial abnormality. Mild chronic small vessel disease. Moderate-sized left posterior scalp hematomaElectronically signed by: Luke Mcallister (January 24, 2022 12:27:46)
[2022-01-24] MEDS ORDERED: ROCEPHIN VIAL 1 GRAM 1 G in NS 100 ML IV 100 ML IV ONE (12:31)
--- NOTE | 2022-01-24 12:44 | CT ---
ABDOMEN/PELVIS W/O CONHistory: ABD PAIN, GUARDINGTechnique: CT images of the abdomen and pelvis were obtained without IV or oral contrast. Reformatted images in the coronal and sagittal planes also generated for review. Automatic exposure was utilized.Comparison: 10/12/2021Findings: Please note that evaluation for soft tissue pathology is limited without IV contrast. Evaluation of the GI tract is also limited without oral contrast. The exam is also degraded by motion artifact as well as streak artifact related to positioning of the patient's left upper extremity across the upper abdomen.Accounting for this, motion limited images through the lower chest demonstrate cardiomegaly, coronary atherosclerotic disease, pacemaker wires, small right pleural effusion and mild atelectasis of the right lower lobe. There is a grossly stable 1.8 x 1.6 cm right cardiophrenic angle lymph node on axial image 18 series 3. Degenerative changes throughout the spine noted.Patient's previously seen hypoenhancing right hepatic lobe lesion is not well appreciated on today's noncontrast exam. The gallbladder is not visualized and may be absent. A percutaneous biliary drainage catheter terminates near the level of the ampulla. The unenhanced spleen, pancreas, adrenals and right kidney are unremarkable. A 3-4 mm nonobstructing left lower pole renal stone is noted.Postsurgical changes from previous right hemicolectomy noted. There is distal colonic diverticulosis without diverticulitis. There is re-demonstration of a bowel containing periumbilical hernia without evidence of bowel obstruction. The aortoiliac system is moderately calcified without aneurysm. The urinary bladder is completely collapsed around a Ojeda catheter, limiting evaluation. The uterus is absent.Previously seen prominent lymph nodes within the upper abdomen again noted and appear grossly unchanged since prior. There is new small volume ascites, which is predominantly centered within the right hemiabdomen. There is no free air.Impression:1. Motion and technically limited exam performed without IV or oral contrast.2. Gallbladder is not visualized, suggesting interval cholecystectomy. There is new small volume ascites, which is centered within the right abdomen and could potentially reflect a bile leak. Clinical correlation for signs of peritonitis recommended. If indicated, HIDA scan should also be considered for further evaluation.3. Patient's previously seen hypoenhancing right hepatic lobe lesion, concerning for metastatic disease is not well appreciated on today's noncontrast exam. Enlarged right cardiophrenic and upper abdominal lymph nodes appear grossly unchanged given differences in technique.4. Colonic diverticulosis without diverticulitis, nonobstructing left nephrolithiasis, prior postsurgical changes and additional chronic/nonacute findings as detailed above.Electronically signed by: EMIR WALDEN (January 24, 2022 12:43:12)
[2022-01-24] MEDS ORDERED: ROCEPHIN VIAL 1 GRAM ONE (13:18)
--- NOTE | 2022-01-24 14:07 | RAD ---
CHEST, 1 VIEWHISTORY: AMS, HX OF FALLStudy: Single view of the chest.Comparison:January 18, 2022Findings:The cardiomediastinal silhouette is normal. Bilateral interstitial prominence worsened from prior. No focal consolidations, pleural effusions or pneumothorax. Osseous structures demonstrate no acute abnormality.IMPRESSION:1. Bilateral interstitial prominence which has worsened compared to prior.. Findings may represent edema versus atypical infection, including viral etiologies.Electronically signed by: WALE COLEMAN (January 24, 2022 14:06:15)
--- NOTE | 2022-01-24 14:17 | RAD ---
HISTORYFall, right hip painSTUDYRight hip two views, AP pelvisCOMPARISONNoneFINDINGSIt is of note that the upper iliac wings are not included on the image. The remainder of the pelvic bones appear intact. The right hip joint is intact. No no joint erosions are identified. No definite fracture, lytic, or blastic lesion is identified. However, if the patient continues to be symptomatic CT or MRI could be obtained in order to detect a fracture that is radiographically occult.IMPRESSIONNo definite fracture identifiedElectronically signed by: MIN HARP (January 24, 2022 14:16:39)
[2022-01-24] MEDS ORDERED: D5 NS 1,000 ML IV 1,000 ML IV ONE (14:56)
[2022-01-24] MEDS: D5 NS 1,000 ML IV 1,000 ML IV SCH (15:00)
[2022-01-24] MEDS: ROCEPHIN VIAL 1 GRAM 1 G in NS 100 ML IV 100 ML IV SCH (16:30)
[2022-01-24 16:52] VITALS: BMI 44.2
[2022-01-24] MEDS ORDERED: NYSTATIN POWDER ONE (19:09)
[2022-01-24] MEDS: NYSTATIN POWDER TOP SCH (21:21)
[2022-01-24 23:01] LABS: ABG BASE EXCESS -14.3 mmol/L (-2.0-2.0)
[2022-01-24 23:03] LABS: ABG HCO3 13.9 mmol/L (22-26)
[2022-01-24 23:04] LABS: ABG ALLEN TEST POS
[2022-01-24] MEDS ORDERED: LEVOPHED 8 MG/250 ML IV *PREMIX 8 MG/250 ML PLAST..BAG IV PRN (23:49)
[2022-01-24] MEDS ORDERED: LEVOPHED 8 MG/250 ML IV *PREMIX 8 MG/250 ML PLAST..BAG IV ONE (23:52)
[2022-01-25] MEDS: D5 NS 1,000 ML IV 1,000 ML IV SCH ×2 (00:11→06:20)
[2022-01-25 04:54] LABS: ABG BASE EXCESS -16.4 mmol/L (-2.0-2.0)
[2022-01-25 04:56] LABS: ABG ALLEN TEST POS; ABG HCO3 13.3 mmol/L (22-26)
[2022-01-25 04:58] LABS: BASOPHILS # (AUTO) 0.1 X10^3/uL (0.0-0.1); BASOPHILS % (AUTO) 0.2 % (0.2-1.0); EOSINOPHILS # (AUTO) 0.4 x10^3/uL (0.0-0.2); EOSINOPHILS % (AUTO) 1.4 % (0.9-2.9); HEMATOCRIT 30.6 % (36.0-47.0); HEMOGLOBIN 9.5 g/dL (12.0-16.0); LYMPHOCYTES % (AUTO) 3.8 % (21.0-51.0); MEAN CORPUSCULAR HEMOGLOBIN 29.4 pg (27.0-34.0); MEAN CORPUSCULAR HGB CONC 31.2 g/dL (33.0-35.0); MEAN CORPUSCULAR VOLUME 94.3 fL (80.0-100.0); MEAN PLATELET VOLUME 8.3 fL (7.4-11.0); MONOCYTES # (AUTO) 0.6 x10^3/uL (0.3-0.8); MONOCYTES % (AUTO) 2.5 % (0.0-13.0); NEUTROPHILS # (AUTO) 24.1 x10^3/uL (2.2-4.8); NEUTROPHILS % (AUTO) 92.1 % (42.0-75.0); RED BLOOD COUNT 3.25 X10^6/uL (3.5-5.4)
[2022-01-25 05:06] LABS: ALBUMIN 1.3 g/dL (3.4-5.0); CALCIUM 8.4 mg/dL (8.5-10.1); CARBON DIOXIDE 20.1 mmol/L (21-32); COR CA(FOR HYPOALB) 10.6 mg/dL (8.5-10.1); CREATININE 4.39 mg/dL (0.55-1.02); TOTAL PROTEIN 6.5 g/dL (6.4-8.2)
[2022-01-25 05:08] LABS: LACTIC ACID 3.5 mmol/L (0.4-2.0)
[2022-01-25] MEDS: NYSTATIN POWDER TOP SCH (05:16)
[2022-01-25 05:27] LABS: WHITE BLOOD COUNT 26.1 X10^3/uL (3.6-10.0)
[2022-01-25 05:28] LABS: ANISOCYTOSIS 1+; BAND NEUTROPHILS % 13 % (0-10); METAMYELOCYTES % 3; PLATELET MORPHOLOGY COMMENT NORMAL (NORMAL)
[2022-01-25] MEDS: MORPHINE SULFATE INJ 4 MG IVP PRN ×2 (07:22→09:43)
[2022-01-25] MEDS ORDERED: ELIQUIS PO SCH (09:00)
[2022-01-25] MEDS: ROCEPHIN VIAL 1 GRAM 1 G in NS 100 ML IV 100 ML IV SCH (09:08)
[2022-01-25 10:56] VITALS: BP 54/21
--- NOTE | 2022-02-28 15:49 | DR.H&P ---
H&P History & Physical for Day of: H&P Date: 01/24/22 Chief Complaint Chief Complaint: Nonverbal with altered mental state. Allergies Allergies Allergy/AdvReac Type Severity Reaction Status Date / Time Sulfa (Sulfonamide AdvReac Verified 09/29/19 08:10 Antibiotics) [SULFA] History of Present Illness History of Present Illness: This is a 71-year-old female who is a patient at [facility] here in [facility]. She was found by the nurses at the longterm and essentially they said she was nonverbal and making unintelligible responses to questions. Patient did have a recent follow-up 1 to 2 weeks ago. She had a head injury then and was evaluated emergency department. She is on a blood thinner called Trace. There was no other reports from the longterm with specific complaints. Work-up in emergency department revealed a UTI with too numerous to count WBCs on the urinalysis. She had elevated lactic acid as well. She is also noted to be dehydrated with creatinine elevated at 3.5. Previously she had a normal creatinine. White blood cell count is elevated at nearly 13,000. She was started on IV fluids IV Rocephin and the chest x-ray was done and showed possible fluid overload. CT of the abdomen pelvis revealed ascites and umbilical hernia which was not incarcerated. I was called and agreed to admit the patient and the patient was sent to the ICU for further monitoring and treatment. Past Medical History Past Medical History: Diabetes Additional Medical History: NOTED ON ADMISSION: PATIENT STATES SHE HAS PAST HISTORY OF ATRIAL FIBRILLATION Past Surgical History Surgical History: Hysterectomy, Joint Replacement, Ortho Surgery and Tonsillectomy Family History Family Medical History: Diabetes Mellitus and Coronary Artery Disease Social History Does patient currently use any type of tobacco product: No Have you used tobacco products in the last 12 months: No Type of Tobacco Use: None Alcohol Use: None Medications Home Medications: Sulfa (Sulfonamide Antibiotics) [SULFA] Adverse Reaction (Verified 09/29/19 08:10) CONTINUE taking the following medications hydrocodone 5 mg-acetaminophen 325 mg tablet 1 tab PO Q6H PRN Pain 01/24/22 [History] multivitamin with minerals 1 tab PO HS 01/24/22 [History] Labs Result Diagrams: 01/25/22 04:30 01/25/22 04:30 Labs: 01/24/22 11:34 Blood Blood Culture - Final 01/24/22 11:29 Blood Blood Culture - Final 01/24/22 11:36 Urine,Catheterized Urine Culture - Final Klebsiella Pneumoniae Laboratory WBC 26.1 X10^3/uL (3.6-10.0) H D 01/25/22 04:30 RBC 3.25 X10^6/uL (3.5-5.4) L 01/25/22 04:30 Hgb 9.5 g/dL (12.0-16.0) L 01/25/22 04:30 Hct 30.6 % (36.0-47.0) L 01/25/22 04:30 MCV 94.3 fL (80.0-100.0) 01/25/22 04:30 MCH 29.4 pg (27.0-34.0) 01/25/22 04:30 MCHC 31.2 g/dL (33.0-35.0) L 01/25/22 04:30 RDW 20.0 % (11.6-16.5) H 01/25/22 04:30 Plt Count 394 X10^3/uL (150.0-450.0) 01/25/22 04:30 Plt Count Comment Adequate (ADEQUATE) 01/25/22 04:30 MPV 8.3 fL (7.4-11.0) 01/25/22 04:30 Neut % (Auto) 92.1 % (42.0-75.0) H 01/25/22 04:30 Lymph % (Auto) 3.8 % (21.0-51.0) L 01/25/22 04:30 [place] % (Auto) 2.5 % (0.0-13.0) 01/25/22 04:30 Eos % (Auto) 1.4 % (0.9-2.9) 01/25/22 04:30 Baso % (Auto) 0.2 % (0.2-1.0) 01/25/22 04:30 Neut # (Auto) 24.1 x10^3/uL (2.2-4.8) H 01/25/22 04:30 Lymph # (Auto) 1.0 X10^3/uL (1.3-2.9) L 01/25/22 04:30 [place] # (Auto) 0.6 x10^3/uL (0.3-0.8) 01/25/22 04:30 Eos # (Auto) 0.4 x10^3/uL (0.0-0.2) H 01/25/22 04:30 Baso # (Auto) 0.1 X10^3/uL (0.0-0.1) 01/25/22 04:30 Absolute Nucleated RBC 1.7 /100WBC 01/25/22 04:30 Total Counted 100 01/25/22 04:30 Neutrophils % (Manual) 73 % (39-76) 01/25/22 04:30 Band Neutrophils % 13 % (0-10) H 01/25/22 04:30 Lymphocytes % (Manual) 5 % (13-43) L 01/25/22 04:30 Monocytes % (Manual) 6 % (4-9) 01/25/22 04:30 Metamyelocytes % 3 01/25/22 04:30 Nucleated RBCs 5 01/25/22 04:30 Plt Morphology Comment Normal (NORMAL) 01/25/22 04:30 RBC Morphology Abnormal (NORMAL) A 01/25/22 04:30 Anisocytosis 1+ A 01/25/22 04:30 PT 26.9 SECONDS (11.8-14.3) 01/24/22 11:29 INR Target Range - 01/24/22 11:29 INR 2.63 (0.8-1.3) H 01/24/22 11:29 APTT 42.8 SECONDS (22.9-36.5) H 01/24/22 11:29 PTT Comment - 01/24/22 11:29 Sample Site Lb 01/25/22 05:00 ABG pH 7.070 (7.35-7.45) L* 01/25/22 05:00 ABG pCO2 46.0 mmHg (35.0-45.0) H 01/25/22 05:00 ABG pO2 170.0 mmHg (80.0-100.0) H 01/25/22 05:00 ABG HCO3 13.3 mmol/L (22-26) L* 01/25/22 05:00 ABG O2 Saturation 99.0 % (90-100) 01/25/22 05:00 ABG Base Excess -16.4 mmol/L (-2.0-2.0) L 01/25/22 05:00 Jhoan Test Pos 01/25/22 05:00 A-a Gradient 486.0 mmHg 01/25/22 05:00 FiO2 100.0 01/25/22 05:00 Blood Gas Comments Kira well. 01/25/22 05:00 Sodium 134 mmol/L (136-145) L 01/25/22 04:30 Corrected Sodium 136 mmol/L (136-145) 01/25/22 04:30 Potassium 5.7 mmol/L (3.5-5.1) H 01/25/22 04:30 Chloride 102 mmol/L (98-107) 01/25/22 04:30 Carbon Dioxide 20.1 mmol/L (21-32) L 01/25/22 04:30 BUN 62 mg/dL (7-18) H 01/25/22 04:30 Creatinine 4.39 mg/dL (0.55-1.02) H 01/25/22 04:30 Est GFR (MDRD) Af Amer 13 (>60) L 01/25/22 04:30 Est GFR (MDRD) Non-Af 11 (>60) L 01/25/22 04:30 Glucose 172 mg/dL (65-99) H 01/25/22 04:30 POC Glucose (mg/dL) 120 mg/dL (65-99) H 01/24/22 20:11 Lactic Acid 3.5 mmol/L (0.4-2.0) H 01/25/22 04:30 Calcium 8.4 mg/dL (8.5-10.1) L 01/25/22 04:30 Corrected Calcium 10.6 mg/dL (8.5-10.1) H 01/25/22 04:30 Total Bilirubin 1.10 mg/dL (0.2-1.0) H 01/25/22 04:30 AST 84 Units/L (15-37) H 01/25/22 04:30 ALT 26 Units/L (12-78) 01/25/22 04:30 Alkaline Phosphatase 140 Units/L (46-116) H 01/25/22 04:30 Creatine Kinase 335 Units/L (26-192) H 01/24/22 11:29 CK-MB (CK-2) 3.1 ng/mL (0-4.0) 01/24/22 11:29 CK/CKMB % Calc 0.9 % (<4) 01/24/22 11:29 Troponin I High Sens 8.8 ng/L (4.0-60.0) 01/24/22 11:29 B-Natriuretic Peptide 1010 pg/mL (0-79) H* 01/24/22 14:29 Total Protein 6.5 g/dL (6.4-8.2) 01/25/22 04:30 Albumin 1.3 g/dL (3.4-5.0) L 01/25/22 04:30 Globulin 5.2 g/dL (2.5-4.5) H 01/25/22 04:30 Albumin/Globulin Ratio 0.3 Ratio (1.1-2.1) L 01/25/22 04:30 Lipase 22 Units/L (73-393) L 01/24/22 11:29 Specimen Type Catherized urine 01/24/22 11:36 Urine Color Yellow (YELLOW) 01/24/22 11:36 Urine Appearance Cloudy (CLEAR) 01/24/22 11:36 Urine pH 5.0 (5.0 - 8.0) 01/24/22 11:36 Ur Specific [place] 1.025 (1.000-1.030) 01/24/22 11:36 Urine Protein 3+ (NEGATIVE) 01/24/22 11:36 Urine Glucose (UA) Negative (NEGATIVE) 01/24/22 11:36 Urine Ketones 1+ (NEGATIVE) 01/24/22 11:36 Urine Blood 4+ (NEGATIVE) 01/24/22 11:36 Urine Nitrite Negative (NEGATIVE) 01/24/22 11:36 Urine Bilirubin 1+ (NEGATIVE) 01/24/22 11:36 Urine Urobilinogen 1+ (NORMAL) 01/24/22 11:36 Ur Leukocyte Esterase 3+ (NEGATIVE) 01/24/22 11:36 Urine RBC 5-10 /HPF (0-3) A 01/24/22 11:36 Urine WBC Tntc /HPF (0-5) A 01/24/22 11:36 Ur Squamous Epith Cells Rare /HPF (NEGATIVE) 01/24/22 11:36 Amorphous Sediment 1+ /HPF (NEGATIVE) 01/24/22 11:36 Urine Bacteria Trace /HPF (NEGATIVE) 01/24/22 11:36 Ur Culture Indicated? Yes/culture set up 01/24/22 11:36 SARS-CoV-2 (PCR) Negative (NEGATIVE) 01/24/22 14:29 Influenza Type A (PCR) Negative (NEGATIVE) 01/24/22 14:29 Influenza Type B (PCR) Negative (NEGATIVE) 01/24/22 14:29 RSV (PCR) Negative (NEGATIVE) 01/24/22 14:29 Review of Systems Constitutional: Fever, Chills, Weakness and Malaise Eyes: No Symptoms Reported ENT: No Symptoms Reported Respiratory: No Symptoms Reported Cardiovascular: No Symptoms Reported Gastrointestinal: No Symptoms Reported Genitourinary: No Symptoms Reported Musculoskeletal: No Symptoms Reported Skin: No Symptoms Reported Neurological: No Symptoms Reported Physical Exam Vital Signs: Temperature 101.5 F Pulse Rate 0 Respiratory Rate 0 Blood Pressure [Left Arm] 116/78 Blood Pressure 54/21 O2 Sat by Pulse Oximetry 87 Oriented: Not Oriented Eyes: Normal Ear: Normal Nose: Normal Throat: Normal Respiratory: Diminished Throughout Cardiovascular: Irregular : Normal Auscultation: Bowel Sounds: Decreased Palpation: Normal Tenderness: Normal Skin: Decreased [place] Affect: Normal Speech Pattern: Unclear Assessment/Plan (1) Acute renal failure: Status: Acute Plan: IV fluid hydration (2) Sepsis: Status: Acute Plan: IV Rocephin (3) Failure to thrive: Status: Acute Plan: Treat patient's underlying medical problems causing her to have current failure to thrive. (4) Ascites: Status: Acute (5) Acute UTI: Status: Acute Plan: IV Rocephin and follow-up with urine culture and sensitivities when available.
--- NOTE | 2022-02-28 15:59 | PCM.PROG ---
Progress Note Progress Note for Day of Date of Exam: 01/25/22 Subjective Subjective: This morning the patient's condition has worsened. Her kidney function is not improving this and Levophed had to be started to maintain her blood pressure. This was still conveyed to the patient and they know given all the patient's medical problems that the situation did not look good overall. They were going to discuss with the family regarding a DNR. The patient looks like she has urosepsis and she is going into multiorgan failure at this time. I will see what the family wishes to do later today when they let me know about the DNR. Past Medical Family Social History Allergies: Allergies Sulfa (Sulfonamide Antibiotics) [SULFA] Adverse Reaction (Verified 09/29/19 08:10) Vital Signs and I&O's Vital Signs: Temperature 101.5 F Pulse Rate 0 Respiratory Rate 0 Blood Pressure [Left Arm] 116/78 Blood Pressure 54/21 O2 Sat by Pulse Oximetry 87 Physical Exam Oriented: Not Oriented Eyes: Normal Ear: Normal Nose: Normal Throat: Normal Cardiovascular: Irregular : Normal Auscultation: Bowel Sounds: Decreased Tenderness: Normal Skin: Decreased Turgur Affect: Normal Speech Pattern: Unclear Laboratory and Diagnostics Result Diagrams: 01/25/22 04:30 01/25/22 04:30 Labs: 01/24/22 11:34 Blood Blood Culture - Final 01/24/22 11:29 Blood Blood Culture - Final 01/24/22 11:36 Urine,Catheterized Urine Culture - Final Klebsiella Pneumoniae Laboratory WBC 26.1 X10^3/uL (3.6-10.0) H D 01/25/22 04:30 RBC 3.25 X10^6/uL (3.5-5.4) L 01/25/22 04:30 Hgb 9.5 g/dL (12.0-16.0) L 01/25/22 04:30 Hct 30.6 % (36.0-47.0) L 01/25/22 04:30 MCV 94.3 fL (80.0-100.0) 01/25/22 04:30 MCH 29.4 pg (27.0-34.0) 01/25/22 04:30 MCHC 31.2 g/dL (33.0-35.0) L 01/25/22 04:30 RDW 20.0 % (11.6-16.5) H 01/25/22 04:30 Plt Count 394 X10^3/uL (150.0-450.0) 01/25/22 04:30 Plt Count Comment Adequate (ADEQUATE) 01/25/22 04:30 MPV 8.3 fL (7.4-11.0) 01/25/22 04:30 Neut % (Auto) 92.1 % (42.0-75.0) H 01/25/22 04:30 Lymph % (Auto) 3.8 % (21.0-51.0) L 01/25/22 04:30 [place] % (Auto) 2.5 % (0.0-13.0) 01/25/22 04:30 Eos % (Auto) 1.4 % (0.9-2.9) 01/25/22 04:30 Baso % (Auto) 0.2 % (0.2-1.0) 01/25/22 04:30 Neut # (Auto) 24.1 x10^3/uL (2.2-4.8) H 01/25/22 04:30 Lymph # (Auto) 1.0 X10^3/uL (1.3-2.9) L 01/25/22 04:30 [place] # (Auto) 0.6 x10^3/uL (0.3-0.8) 01/25/22 04:30 Eos # (Auto) 0.4 x10^3/uL (0.0-0.2) H 01/25/22 04:30 Baso # (Auto) 0.1 X10^3/uL (0.0-0.1) 01/25/22 04:30 Absolute Nucleated RBC 1.7 /100WBC 01/25/22 04:30 Total Counted 100 01/25/22 04:30 Neutrophils % (Manual) 73 % (39-76) 01/25/22 04:30 Band Neutrophils % 13 % (0-10) H 01/25/22 04:30 Lymphocytes % (Manual) 5 % (13-43) L 01/25/22 04:30 Monocytes % (Manual) 6 % (4-9) 01/25/22 04:30 Metamyelocytes % 3 01/25/22 04:30 Nucleated RBCs 5 01/25/22 04:30 Plt Morphology Comment Normal (NORMAL) 01/25/22 04:30 RBC Morphology Abnormal (NORMAL) A 01/25/22 04:30 Anisocytosis 1+ A 01/25/22 04:30 PT 26.9 SECONDS (11.8-14.3) 01/24/22 11:29 INR Target Range - 01/24/22 11:29 INR 2.63 (0.8-1.3) H 01/24/22 11:29 APTT 42.8 SECONDS (22.9-36.5) H 01/24/22 11:29 PTT Comment - 01/24/22 11:29 Sample Site Lb 01/25/22 05:00 ABG pH 7.070 (7.35-7.45) L* 01/25/22 05:00 ABG pCO2 46.0 mmHg (35.0-45.0) H 01/25/22 05:00 ABG pO2 170.0 mmHg (80.0-100.0) H 01/25/22 05:00 ABG HCO3 13.3 mmol/L (22-26) L* 01/25/22 05:00 ABG O2 Saturation 99.0 % (90-100) 01/25/22 05:00 ABG Base Excess -16.4 mmol/L (-2.0-2.0) L 01/25/22 05:00 Jhoan Test Pos 01/25/22 05:00 A-a Gradient 486.0 mmHg 01/25/22 05:00 FiO2 100.0 01/25/22 05:00 Blood Gas Comments Kira well. 01/25/22 05:00 Sodium 134 mmol/L (136-145) L 01/25/22 04:30 Corrected Sodium 136 mmol/L (136-145) 01/25/22 04:30 Potassium 5.7 mmol/L (3.5-5.1) H 01/25/22 04:30 Chloride 102 mmol/L (98-107) 01/25/22 04:30 Carbon Dioxide 20.1 mmol/L (21-32) L 01/25/22 04:30 BUN 62 mg/dL (7-18) H 01/25/22 04:30 Creatinine 4.39 mg/dL (0.55-1.02) H 01/25/22 04:30 Est GFR (MDRD) Af Amer 13 (>60) L 01/25/22 04:30 Est GFR (MDRD) Non-Af 11 (>60) L 01/25/22 04:30 Glucose 172 mg/dL (65-99) H 01/25/22 04:30 POC Glucose (mg/dL) 120 mg/dL (65-99) H 01/24/22 20:11 Lactic Acid 3.5 mmol/L (0.4-2.0) H 01/25/22 04:30 Calcium 8.4 mg/dL (8.5-10.1) L 01/25/22 04:30 Corrected Calcium 10.6 mg/dL (8.5-10.1) H 01/25/22 04:30 Total Bilirubin 1.10 mg/dL (0.2-1.0) H 01/25/22 04:30 AST 84 Units/L (15-37) H 01/25/22 04:30 ALT 26 Units/L (12-78) 01/25/22 04:30 Alkaline Phosphatase 140 Units/L (46-116) H 01/25/22 04:30 Creatine Kinase 335 Units/L (26-192) H 01/24/22 11:29 CK-MB (CK-2) 3.1 ng/mL (0-4.0) 01/24/22 11:29 CK/CKMB % Calc 0.9 % (<4) 01/24/22 11:29 Troponin I High Sens 8.8 ng/L (4.0-60.0) 01/24/22 11:29 B-Natriuretic Peptide 1010 pg/mL (0-79) H* 01/24/22 14:29 Total Protein 6.5 g/dL (6.4-8.2) 01/25/22 04:30 Albumin 1.3 g/dL (3.4-5.0) L 01/25/22 04:30 Globulin 5.2 g/dL (2.5-4.5) H 01/25/22 04:30 Albumin/Globulin Ratio 0.3 Ratio (1.1-2.1) L 01/25/22 04:30 Lipase 22 Units/L (73-393) L 01/24/22 11:29 Specimen Type Catherized urine 01/24/22 11:36 Urine Color Yellow (YELLOW) 01/24/22 11:36 Urine Appearance Cloudy (CLEAR) 01/24/22 11:36 Urine pH 5.0 (5.0 - 8.0) 01/24/22 11:36 Ur Specific Wolf 1.025 (1.000-1.030) 01/24/22 11:36 Urine Protein 3+ (NEGATIVE) 01/24/22 11:36 Urine Glucose (UA) Negative (NEGATIVE) 01/24/22 11:36 Urine Ketones 1+ (NEGATIVE) 01/24/22 11:36 Urine Blood 4+ (NEGATIVE) 01/24/22 11:36 Urine Nitrite Negative (NEGATIVE) 01/24/22 11:36 Urine Bilirubin 1+ (NEGATIVE) 01/24/22 11:36 Urine Urobilinogen 1+ (NORMAL) 01/24/22 11:36 Ur Leukocyte Esterase 3+ (NEGATIVE) 01/24/22 11:36 Urine RBC 5-10 /HPF (0-3) A 01/24/22 11:36 Urine WBC Tntc /HPF (0-5) A 01/24/22 11:36 Ur Squamous Epith Cells Rare /HPF (NEGATIVE) 01/24/22 11:36 Amorphous Sediment 1+ /HPF (NEGATIVE) 01/24/22 11:36 Urine Bacteria Trace /HPF (NEGATIVE) 01/24/22 11:36 Ur Culture Indicated? Yes/culture set up 01/24/22 11:36 SARS-CoV-2 (PCR) Negative (NEGATIVE) 01/24/22 14:29 Influenza Type A (PCR) Negative (NEGATIVE) 01/24/22 14:29 Influenza Type B (PCR) Negative (NEGATIVE) 01/24/22 14:29 RSV (PCR) Negative (NEGATIVE) 01/24/22 14:29 Plan (1) Acute renal failure: Status: Acute Plan: IV fluid hydration (2) Sepsis: Status: Acute Plan: IV Rocephin (3) Failure to thrive: Status: Acute Plan: Treat patient's underlying medical problems causing her to have current failure to thrive. (4) Ascites: Status: Acute (5) Acute UTI: Status: Acute Plan: IV Rocephin and follow-up with urine culture and sensitivities when available. (6) Leukocytosis: Status: Acute Plan: Continue IV Rocephin this time. If the patient's family decides on a DNR I would not add another antibiotic (7) Hyperkalemia: Status: Acute Plan: Kayexalate
--- NOTE | 2022-02-28 16:02 | DR.DECEASE ---
FORM Admission Diagnosis Current Active Problems Problem Status Onset Sepsis Acute UTI Acute kidney injury (nontraumatic) Discharge Diagnosis (1) Acute renal failure: Problems (Updated 02/28/22 @ 15:58 by PAIGE GARCIA) Hyperkalemia (Acute) E87.5 Leukocytosis (Acute) D72.829 Ascites (Acute) R18.8 Failure to thrive (Acute) Sepsis (Acute) A41.9 Acute renal failure (Acute) N17.9 Pulmonary embolism (Acute) I26.99 Arthritis (Chronic) M19.90 Dyslipidemia (Chronic) E78.5 GERD (gastroesophageal reflux disease) (Chronic) K21.9 Gout (Chronic) M10.9 Hypertension (Chronic) I10 History of ventricular tachycardia (Chronic) Z86.79 History of atrial fibrillation (Chronic) Z86.79 Knee laceration (Acute) S81.019A Contusion of left elbow (Acute) S50.02XA Laceration of left knee (Acute) S81.012A Dislocation of right shoulder joint (Acute) S43.004A Constipation (Acute) K59.00 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 Gastritis (Acute) K29.70 Colon cancer (Acute) C18.9 S/P exploratory laparotomy (Acute) Z98.890 Atrial fibrillation (Acute) I48.91 Abdominal pain (Acute) R10.9 Frequent falls (Acute) R29.6 Sprain of left shoulder (Acute) S43.402A Scalp hematoma (Acute) S00.03XA Contusion of scalp (Acute) S00.03XA Metastatic cancer (Acute) C79.9 Sepsis (Acute) A41.9 Acute UTI (Acute) N39.0 Acute kidney injury (nontraumatic) (Acute) N17.9 (2) Sepsis: Problems (Updated 02/28/22 @ 15:58 by PAIGE GARCIA) Hyperkalemia (Acute) E87.5 Leukocytosis (Acute) D72.829 Ascites (Acute) R18.8 Failure to thrive (Acute) Sepsis (Acute) A41.9 Acute renal failure (Acute) N17.9 Pulmonary embolism (Acute) I26.99 Arthritis (Chronic) M19.90 Dyslipidemia (Chronic) E78.5 GERD (gastroesophageal reflux disease) (Chronic) K21.9 Gout (Chronic) M10.9 Hypertension (Chronic) I10 History of ventricular tachycardia (Chronic) Z86.79 History of atrial fibrillation (Chronic) Z86.79 Knee laceration (Acute) S81.019A Contusion of left elbow (Acute) S50.02XA Laceration of left knee (Acute) S81.012A Dislocation of right shoulder joint (Acute) S43.004A Constipation (Acute) K59.00 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 Gastritis (Acute) K29.70 Colon cancer (Acute) C18.9 S/P exploratory laparotomy (Acute) Z98.890 Atrial fibrillation (Acute) I48.91 Abdominal pain (Acute) R10.9 Frequent falls (Acute) R29.6 Sprain of left shoulder (Acute) S43.402A Scalp hematoma (Acute) S00.03XA Contusion of scalp (Acute) S00.03XA Metastatic cancer (Acute) C79.9 Sepsis (Acute) A41.9 Acute UTI (Acute) N39.0 Acute kidney injury (nontraumatic) (Acute) N17.9 (3) Failure to thrive: Problems (Updated 02/28/22 @ 15:58 by PAIGE GARCIA) Hyperkalemia (Acute) E87.5 Leukocytosis (Acute) D72.829 Ascites (Acute) R18.8 Failure to thrive (Acute) Sepsis (Acute) A41.9 Acute renal failure (Acute) N17.9 Pulmonary embolism (Acute) I26.99 Arthritis (Chronic) M19.90 Dyslipidemia (Chronic) E78.5 GERD (gastroesophageal reflux disease) (Chronic) K21.9 Gout (Chronic) M10.9 Hypertension (Chronic) I10 History of ventricular tachycardia (Chronic) Z86.79 History of atrial fibrillation (Chronic) Z86.79 Knee laceration (Acute) S81.019A Contusion of left elbow (Acute) S50.02XA Laceration of left knee (Acute) S81.012A Dislocation of right shoulder joint (Acute) S43.004A Constipation (Acute) K59.00 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 Gastritis (Acute) K29.70 Colon cancer (Acute) C18.9 S/P exploratory laparotomy (Acute) Z98.890 Atrial fibrillation (Acute) I48.91 Abdominal pain (Acute) R10.9 Frequent falls (Acute) R29.6 Sprain of left shoulder (Acute) S43.402A Scalp hematoma (Acute) S00.03XA Contusion of scalp (Acute) S00.03XA Metastatic cancer (Acute) C79.9 Sepsis (Acute) A41.9 Acute UTI (Acute) N39.0 Acute kidney injury (nontraumatic) (Acute) N17.9 (4) Ascites: Problems (Updated 02/28/22 @ 15:58 by PAIGE GARCIA) Hyperkalemia (Acute) E87.5 Leukocytosis (Acute) D72.829 Ascites (Acute) R18.8 Failure to thrive (Acute) Sepsis (Acute) A41.9 Acute renal failure (Acute) N17.9 Pulmonary embolism (Acute) I26.99 Arthritis (Chronic) M19.90 Dyslipidemia (Chronic) E78.5 GERD (gastroesophageal reflux disease) (Chronic) K21.9 Gout (Chronic) M10.9 Hypertension (Chronic) I10 History of ventricular tachycardia (Chronic) Z86.79 History of atrial fibrillation (Chronic) Z86.79 Knee laceration (Acute) S81.019A Contusion of left elbow (Acute) S50.02XA Laceration of left knee (Acute) S81.012A Dislocation of right shoulder joint (Acute) S43.004A Constipation (Acute) K59.00 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 Gastritis (Acute) K29.70 Colon cancer (Acute) C18.9 S/P exploratory laparotomy (Acute) Z98.890 Atrial fibrillation (Acute) I48.91 Abdominal pain (Acute) R10.9 Frequent falls (Acute) R29.6 Sprain of left shoulder (Acute) S43.402A Scalp hematoma (Acute) S00.03XA Contusion of scalp (Acute) S00.03XA Metastatic cancer (Acute) C79.9 Sepsis (Acute) A41.9 Acute UTI (Acute) N39.0 Acute kidney injury (nontraumatic) (Acute) N17.9 (5) Acute UTI: Problems (Updated 02/28/22 @ 15:58 by PAIGE GARCIA) Hyperkalemia (Acute) E87.5 Leukocytosis (Acute) D72.829 Ascites (Acute) R18.8 Failure to thrive (Acute) Sepsis (Acute) A41.9 Acute renal failure (Acute) N17.9 Pulmonary embolism (Acute) I26.99 Arthritis (Chronic) M19.90 Dyslipidemia (Chronic) E78.5 GERD (gastroesophageal reflux disease) (Chronic) K21.9 Gout (Chronic) M10.9 Hypertension (Chronic) I10 History of ventricular tachycardia (Chronic) Z86.79 History of atrial fibrillation (Chronic) Z86.79 Knee laceration (Acute) S81.019A Contusion of left elbow (Acute) S50.02XA Laceration of left knee (Acute) S81.012A Dislocation of right shoulder joint (Acute) S43.004A Constipation (Acute) K59.00 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 Gastritis (Acute) K29.70 Colon cancer (Acute) C18.9 S/P exploratory laparotomy (Acute) Z98.890 Atrial fibrillation (Acute) I48.91 Abdominal pain (Acute) R10.9 Frequent falls (Acute) R29.6 Sprain of left shoulder (Acute) S43.402A Scalp hematoma (Acute) S00.03XA Contusion of scalp (Acute) S00.03XA Metastatic cancer (Acute) C79.9 Sepsis (Acute) A41.9 Acute UTI (Acute) N39.0 Acute kidney injury (nontraumatic) (Acute) N17.9 (6) Leukocytosis: Problems (Updated 02/28/22 @ 15:58 by PAIGE GARCIA) Hyperkalemia (Acute) E87.5 Leukocytosis (Acute) D72.829 Ascites (Acute) R18.8 Failure to thrive (Acute) Sepsis (Acute) A41.9 Acute renal failure (Acute) N17.9 Pulmonary embolism (Acute) I26.99 Arthritis (Chronic) M19.90 Dyslipidemia (Chronic) E78.5 GERD (gastroesophageal reflux disease) (Chronic) K21.9 Gout (Chronic) M10.9 Hypertension (Chronic) I10 History of ventricular tachycardia (Chronic) Z86.79 History of atrial fibrillation (Chronic) Z86.79 Knee laceration (Acute) S81.019A Contusion of left elbow (Acute) S50.02XA Laceration of left knee (Acute) S81.012A Dislocation of right shoulder joint (Acute) S43.004A Constipation (Acute) K59.00 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 Gastritis (Acute) K29.70 Colon cancer (Acute) C18.9 S/P exploratory laparotomy (Acute) Z98.890 Atrial fibrillation (Acute) I48.91 Abdominal pain (Acute) R10.9 Frequent falls (Acute) R29.6 Sprain of left shoulder (Acute) S43.402A Scalp hematoma (Acute) S00.03XA Contusion of scalp (Acute) S00.03XA Metastatic cancer (Acute) C79.9 Sepsis (Acute) A41.9 Acute UTI (Acute) N39.0 Acute kidney injury (nontraumatic) (Acute) N17.9 (7) Hyperkalemia: Problems (Updated 02/28/22 @ 15:58 by PAIGE GARCIA) Hyperkalemia (Acute) E87.5 Leukocytosis (Acute) D72.829 Ascites (Acute) R18.8 Failure to thrive (Acute) Sepsis (Acute) A41.9 Acute renal failure (Acute) N17.9 Pulmonary embolism (Acute) I26.99 Arthritis (Chronic) M19.90 Dyslipidemia (Chronic) E78.5 GERD (gastroesophageal reflux disease) (Chronic) K21.9 Gout (Chronic) M10.9 Hypertension (Chronic) I10 History of ventricular tachycardia (Chronic) Z86.79 History of atrial fibrillation (Chronic) Z86.79 Knee laceration (Acute) S81.019A Contusion of left elbow (Acute) S50.02XA Laceration of left knee (Acute) S81.012A Dislocation of right shoulder joint (Acute) S43.004A Constipation (Acute) K59.00 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 Gastritis (Acute) K29.70 Colon cancer (Acute) C18.9 S/P exploratory laparotomy (Acute) Z98.890 Atrial fibrillation (Acute) I48.91 Abdominal pain (Acute) R10.9 Frequent falls (Acute) R29.6 Sprain of left shoulder (Acute) S43.402A Scalp hematoma (Acute) S00.03XA Contusion of scalp (Acute) S00.03XA Metastatic cancer (Acute) C79.9 Sepsis (Acute) A41.9 Acute UTI (Acute) N39.0 Acute kidney injury (nontraumatic) (Acute) N17.9 Problems (Updated 02/28/22 @ 15:58 by PAIGE GARCIA) Hyperkalemia (Acute) E87.5 Leukocytosis (Acute) D72.829 Ascites (Acute) R18.8 Failure to thrive (Acute) Sepsis (Acute) A41.9 Acute renal failure (Acute) N17.9 Pulmonary embolism (Acute) I26.99 Arthritis (Chronic) M19.90 Dyslipidemia (Chronic) E78.5 GERD (gastroesophageal reflux disease) (Chronic) K21.9 Gout (Chronic) M10.9 Hypertension (Chronic) I10 History of ventricular tachycardia (Chronic) Z86.79 History of atrial fibrillation (Chronic) Z86.79 Knee laceration (Acute) S81.019A Contusion of left elbow (Acute) S50.02XA Laceration of left knee (Acute) S81.012A Dislocation of right shoulder joint (Acute) S43.004A Constipation (Acute) K59.00 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 Gastritis (Acute) K29.70 Colon cancer (Acute) C18.9 S/P exploratory laparotomy (Acute) Z98.890 Atrial fibrillation (Acute) I48.91 Abdominal pain (Acute) R10.9 Frequent falls (Acute) R29.6 Sprain of left shoulder (Acute) S43.402A Scalp hematoma (Acute) S00.03XA Contusion of scalp (Acute) S00.03XA Metastatic cancer (Acute) C79.9 Sepsis (Acute) A41.9 Acute UTI (Acute) N39.0 Acute kidney injury (nontraumatic) (Acute) N17.9 Labs Result Diagrams: 01/25/22 04:30 01/25/22 04:30 Home Medications Home Medications Medication Instructions Recorded Type hydrocodone 5 mg-acetaminophen 325 1 tab PO Q6H PRN Pain 01/24/22 History mg tablet multivitamin with minerals 1 tab PO HS 01/24/22 History
== END 2022-01-25 11:00 | disposition expired | DRG 690 ==
LOC: ER 11:07 → ICU 14:59
PROVIDERS: ADMIT Family Medicine; ATTEND Family Medicine
DX: Z66 Do not resuscitate; N39.0 Urinary tract infection, site not specified; Z20.822 Contact with and (suspected) exposure to COVID-19; M25.551 Pain in right hip; Z79.01 Long term (current) use of anticoagulants; Z91.81 History of falling; I46.9 Cardiac arrest, cause unspecified; R94.31 Abnormal electrocardiogram [ECG] [EKG]; R06.2 Wheezing; K57.30 Diverticulosis of large intestine without perforation or abscess without bleeding; N17.8 Other acute kidney failure; B96.1 Klebsiella pneumoniae [K. pneumoniae] as the cause of diseases classified elsewhere; R41.82 Altered mental status, unspecified; R03.1 Nonspecific low blood-pressure reading; Z79.899 Other long term (current) drug therapy